=== PATIENT | male | born 1935 | race Two or more races ===

== ENCOUNTER 2017-10-19 15:40 | Inpatient (IN) | payer MEDICARE, OTHER ==
[~2017-10-19] VITALS: Ht 182.7 cm; Wt 96.2 kg
[2017-10-19] MEDS ORDERED: GABA-534 PO (16:03)
[2017-10-19] MEDS ORDERED: METO-356 PO (16:03)
[2017-10-19] MEDS ORDERED: ATOR20TA PO (16:03)
[2017-10-19] MEDS ORDERED: FOLI1TAB16 PO (16:03)
[2017-10-19] MEDS ORDERED: LEVO112T5 PO (16:03)
[2017-10-19] MEDS ORDERED: CLOT15CR5 TP (16:03)
[2017-10-19] MEDS ORDERED: LINA145C PO (16:03)
[2017-10-19] MEDS ORDERED: BISACODYL 10 MG SUPP.RECT RC PRN (20:00)
[2017-10-19 20:43] VITALS: BP 128/68
[2017-10-19] MEDS: CLOTRIMAZOLE/BETAMET DIPROP CREAM 15 GM TUBE TP SCH (21:02)
[2017-10-19] MEDS: ATORVASTATIN 20 MG TABLET PO SCH (21:02)
[2017-10-19] MEDS: GABAPENTIN 300 MG CAPSULE PO SCH (21:06)
[2017-10-19] MEDS: DOCUSATE SODIUM 100 MG CAPSULE PO SCH (21:28)
[2017-10-19] MEDS ORDERED: INSULIN REGULAR, HUMAN 300 UNIT/3 ML VIAL SQ PRN (21:45)
[2017-10-19] MEDS ORDERED: DEXTROSE 50% 50 ML DISP.SYRIN IV PRN (21:45)
[2017-10-20] MEDS: LEVOTHYROXINE SODIUM 112 MCG TABLET PO SCH (06:13)
[2017-10-20] MEDS: BLOOD SUGAR DIAGNOSTIC 1 EACH STRIP VI SCH ×4 (06:35→20:44)
[2017-10-20 08:15] LABS: BASOPHILS % (AUTO) 0.3 % (0.0-2.0); EOSINOPHILS # (AUTO) 0.2 K/uL (0.0-0.7); EOSINOPHILS % (AUTO) 1.6 % (0.0-7.0); HEMOGLOBIN 13.1 g/dL (12.5-16.3); LYMPHOCYTES # (AUTO) 1.3 K/uL (20.0-40.0); LYMPHOCYTES % (AUTO) 13.5 % (20.5-51.5); MEAN CORPUSCULAR HEMOGLOBIN 29.1 uug (23.8-33.4); MEAN CORPUSCULAR HGB CONC 34 g/dL (32.5-36.3); MEAN CORPUSCULAR VOLUME 86.8 fL (73.0-96.2); MONOCYTES # (AUTO) 0.6 K/uL (2.0-10.0); MONOCYTES % (AUTO) 6.5 % (0.0-11.0); NEUTROPHILS # (AUTO) 7.3 K/uL (1.8-8.9); NEUTROPHILS % (AUTO) 78.1 % (38.5-71.5); PLATELET COUNT (AUTO) 114 K/uL (152-348); RED BLOOD CELL COUNT(AUTO) 4.49 MIL/uL (4.06-5.63); WHITE BLOOD COUNT (AUTO) 9.4 K/uL (3.6-10.2)
[2017-10-20 08:22] VITALS: BP 119/61
[2017-10-20] MEDS: GABAPENTIN 300 MG CAPSULE PO SCH ×3 (08:34→17:56)
[2017-10-20] MEDS: FOLIC ACID 1 MG TABLET PO SCH (08:34)
[2017-10-20 08:35] LABS: THYROID STIMULATING HORMONE 2.524 mIU/mL (0.358-3.740)
[2017-10-20] MEDS: METOPROLOL SUCCINATE XL 25 MG TAB.SR.24H PO SCH (08:35)
[2017-10-20] MEDS: CLOTRIMAZOLE/BETAMET DIPROP CREAM 15 GM TUBE TP SCH ×2 (08:41→20:45)
[2017-10-20 09:00] LABS: ALANINE AMINOTRANSFERASE 23 U/L (16-63); ALKALINE PHOSPHATASE 95 U/L (50-136); ASPARTATE AMINOTRANSFERASE 24 U/L (15-37); BILIRUBIN,TOTAL 0.9 mg/dL (0.2-1.0); CARBON DIOXIDE 27 mmol/L (21-32); CHLORIDE 105 mmol/L (98-107); CHOLESTEROL 117 mg/dL (<200); CREATININE 0.7 mg/dL (0.6-1.3); GLUCOSE 110 mg/dL (74-106); HDL CHOLESTEROL 37 mg/dL (40-60); MAGNESIUM 1.9 mg/dL (1.8-2.4); PHOSPHOROUS 2.8 mg/dL (2.5-4.9); POTASSIUM 3.8 mmol/L (3.5-5.1); TOTAL PROTEIN, SERUM 6.9 g/dL (6.4-8.2); TRIGLYCERIDES 118 MG/DL (30-150); UREA NITROGEN, BLOOD 16 mg/dL (7-18)
[2017-10-20 09:06] LABS: IRON, SERUM 29 ug/dL (50-175)
[2017-10-20] MEDS: BOOST GLUCOSE CONTROL 237 ML LIQUID (VANILLA) PO SCH (17:00)
[2017-10-20] MEDS: ACETAMINOPHEN 325 MG TABLET PO PRN (17:56)
[2017-10-20] MEDS: MEGESTROL ACETATE 20 MG TABLET PO SCH (17:56)
[2017-10-20 19:50] VITALS: BP 130/69
[2017-10-20] MEDS: ATORVASTATIN 20 MG TABLET PO SCH (20:45)
[2017-10-20] MEDS: DOCUSATE SODIUM 100 MG CAPSULE PO SCH (20:45)
[2017-10-21] MEDS: LEVOTHYROXINE SODIUM 112 MCG TABLET PO SCH (06:13)
[2017-10-21] MEDS: BLOOD SUGAR DIAGNOSTIC 1 EACH STRIP VI SCH ×4 (06:32→20:45)
[2017-10-21 07:30] VITALS: BP 126/78
[2017-10-21] MEDS: BOOST GLUCOSE CONTROL 237 ML LIQUID (VANILLA) PO SCH ×2 (09:15→17:14)
[2017-10-21] MEDS: METOPROLOL SUCCINATE XL 25 MG TAB.SR.24H PO SCH (09:16)
[2017-10-21] MEDS: GABAPENTIN 300 MG CAPSULE PO SCH ×3 (09:16→17:14)
[2017-10-21] MEDS: FOLIC ACID 1 MG TABLET PO SCH (09:16)
[2017-10-21] MEDS: MEGESTROL ACETATE 20 MG TABLET PO SCH ×2 (09:17→17:14)
[2017-10-21] MEDS: CLOTRIMAZOLE/BETAMET DIPROP CREAM 15 GM TUBE TP SCH ×2 (09:23→20:33)
[2017-10-21 20:16] VITALS: BP 124/62
[2017-10-21] MEDS: ATORVASTATIN 20 MG TABLET PO SCH (20:33)
[2017-10-21] MEDS: DOCUSATE SODIUM 100 MG CAPSULE PO SCH (20:33)
[2017-10-22] MEDS: LEVOTHYROXINE SODIUM 112 MCG TABLET PO SCH (06:12)
[2017-10-22 08:31] VITALS: BP 128/64
[2017-10-22] MEDS: CHOLECALCIFEROL 1,000 UNIT TABLET PO SCH (10:08)
[2017-10-22] MEDS: FOLIC ACID 1 MG TABLET PO SCH (10:08)
[2017-10-22] MEDS: GABAPENTIN 300 MG CAPSULE PO SCH ×3 (10:08→17:27)
[2017-10-22] MEDS: METOPROLOL SUCCINATE XL 25 MG TAB.SR.24H PO SCH (10:09)
[2017-10-22] MEDS: MEGESTROL ACETATE 20 MG TABLET PO SCH ×2 (10:10→17:27)
[2017-10-22] MEDS: CLOTRIMAZOLE/BETAMET DIPROP CREAM 15 GM TUBE TP SCH ×2 (10:15→21:04)
[2017-10-22] MEDS: BOOST GLUCOSE CONTROL 237 ML LIQUID (VANILLA) PO SCH ×2 (10:16→17:43)
[2017-10-22 20:46] VITALS: BP 119/65
[2017-10-22] MEDS: ATORVASTATIN 20 MG TABLET PO SCH (21:04)
[2017-10-22] MEDS: DOCUSATE SODIUM 100 MG CAPSULE PO SCH (21:05)
[2017-10-23] MEDS: LEVOTHYROXINE SODIUM 112 MCG TABLET PO SCH (06:16)
[2017-10-23 07:05] VITALS: BP 139/72
[2017-10-23 08:00] VITALS: BP 129/81
[2017-10-23] MEDS: CHOLECALCIFEROL 1,000 UNIT TABLET PO SCH (08:39)
[2017-10-23] MEDS: FOLIC ACID 1 MG TABLET PO SCH (08:39)
[2017-10-23] MEDS: GABAPENTIN 300 MG CAPSULE PO SCH ×3 (08:39→17:23)
[2017-10-23] MEDS: METOPROLOL SUCCINATE XL 25 MG TAB.SR.24H PO SCH (08:40)
[2017-10-23] MEDS: MEGESTROL ACETATE 20 MG TABLET PO SCH ×2 (08:40→17:23)
[2017-10-23] MEDS: CLOTRIMAZOLE/BETAMET DIPROP CREAM 15 GM TUBE TP SCH ×2 (08:42→20:06)
[2017-10-23] MEDS: BOOST GLUCOSE CONTROL 237 ML LIQUID (VANILLA) PO SCH ×2 (08:44→17:24)
[2017-10-23] MEDS: DOCUSATE SODIUM 100 MG CAPSULE PO SCH (20:16)
[2017-10-23] MEDS: ATORVASTATIN 20 MG TABLET PO SCH (20:16)
[2017-10-24] MEDS: LEVOTHYROXINE SODIUM 112 MCG TABLET PO SCH (06:24)
[2017-10-24 07:05] VITALS: BP 151/68
[2017-10-24] MEDS: CHOLECALCIFEROL 1,000 UNIT TABLET PO SCH (09:14)
[2017-10-24] MEDS: MEGESTROL ACETATE 20 MG TABLET PO SCH ×2 (09:14→17:35)
[2017-10-24] MEDS: METOPROLOL SUCCINATE XL 25 MG TAB.SR.24H PO SCH (09:14)
[2017-10-24] MEDS: FOLIC ACID 1 MG TABLET PO SCH (09:15)
[2017-10-24] MEDS: BOOST GLUCOSE CONTROL 237 ML LIQUID (VANILLA) PO SCH ×2 (09:15→17:35)
[2017-10-24] MEDS: CLOTRIMAZOLE/BETAMET DIPROP CREAM 15 GM TUBE TP SCH ×2 (09:15→20:28)
[2017-10-24] MEDS: GABAPENTIN 300 MG CAPSULE PO SCH ×3 (09:15→17:35)
[2017-10-24] MEDS: ACETAMINOPHEN 325 MG TABLET PO PRN (14:10)
[2017-10-24 20:15] VITALS: BP 135/57
[2017-10-24] MEDS: DOCUSATE SODIUM 100 MG CAPSULE PO SCH (20:28)
[2017-10-24] MEDS: ATORVASTATIN 20 MG TABLET PO SCH (20:29)
[2017-10-24] MEDS ORDERED: CARBOXYMETHYLCELLULOSE SODIUM DROPERETTE EACHEYE PRN (21:45)
[2017-10-25] MEDS: LEVOTHYROXINE SODIUM 112 MCG TABLET PO SCH (06:10)
[2017-10-25 08:25] VITALS: BP 127/69
[2017-10-25] MEDS: GABAPENTIN 300 MG CAPSULE PO SCH ×3 (10:20→17:29)
[2017-10-25] MEDS: METOPROLOL SUCCINATE XL 25 MG TAB.SR.24H PO SCH (10:20)
[2017-10-25] MEDS: CHOLECALCIFEROL 1,000 UNIT TABLET PO SCH (10:20)
[2017-10-25] MEDS: MEGESTROL ACETATE 20 MG TABLET PO SCH ×2 (10:21→17:29)
[2017-10-25] MEDS: FOLIC ACID 1 MG TABLET PO SCH (10:21)
[2017-10-25] MEDS: CLOTRIMAZOLE/BETAMET DIPROP CREAM 15 GM TUBE TP SCH ×2 (10:22→20:44)
[2017-10-25] MEDS: BOOST GLUCOSE CONTROL 237 ML LIQUID (VANILLA) PO SCH ×2 (10:25→17:30)
[2017-10-25 19:52] VITALS: BP 136/66
[2017-10-25] MEDS: ATORVASTATIN 20 MG TABLET PO SCH (20:43)
[2017-10-25] MEDS: DOCUSATE SODIUM 100 MG CAPSULE PO SCH (20:43)
[2017-10-26] MEDS: LEVOTHYROXINE SODIUM 112 MCG TABLET PO SCH (06:22)
[2017-10-26] MEDS: BOOST GLUCOSE CONTROL 237 ML LIQUID (VANILLA) PO SCH ×2 (08:00→17:24)
[2017-10-26] MEDS: FOLIC ACID 1 MG TABLET PO SCH (09:39)
[2017-10-26] MEDS: CLOTRIMAZOLE/BETAMET DIPROP CREAM 15 GM TUBE TP SCH ×2 (09:39→20:26)
[2017-10-26] MEDS: CHOLECALCIFEROL 1,000 UNIT TABLET PO SCH (09:39)
[2017-10-26] MEDS: MEGESTROL ACETATE 20 MG TABLET PO SCH ×2 (09:40→16:33)
[2017-10-26] MEDS: GABAPENTIN 300 MG CAPSULE PO SCH ×3 (09:41→16:33)
[2017-10-26] MEDS: METOPROLOL SUCCINATE XL 25 MG TAB.SR.24H PO SCH (09:43)
[2017-10-26 11:33] VITALS: BP 136/69
[2017-10-26 20:13] VITALS: BP 130/70
[2017-10-26] MEDS: ATORVASTATIN 20 MG TABLET PO SCH (20:23)
[2017-10-26] MEDS: DOCUSATE SODIUM 100 MG CAPSULE PO SCH (20:23)
[2017-10-27] MEDS: LEVOTHYROXINE SODIUM 112 MCG TABLET PO SCH (06:20)
[2017-10-27] MEDS: BOOST GLUCOSE CONTROL 237 ML LIQUID (VANILLA) PO SCH ×2 (08:00→18:01)
[2017-10-27 08:24] VITALS: BP 112/64
[2017-10-27] MEDS: CLOTRIMAZOLE/BETAMET DIPROP CREAM 15 GM TUBE TP SCH ×2 (08:59→20:55)
[2017-10-27] MEDS: MEGESTROL ACETATE 20 MG TABLET PO SCH ×2 (09:23→18:01)
[2017-10-27] MEDS: GABAPENTIN 300 MG CAPSULE PO SCH ×3 (09:24→18:02)
[2017-10-27] MEDS: FERROUS GLUCONATE 324 MG TABLET PO SCH (09:24)
[2017-10-27] MEDS: CHOLECALCIFEROL 1,000 UNIT TABLET PO SCH (09:24)
[2017-10-27] MEDS: METOPROLOL SUCCINATE XL 25 MG TAB.SR.24H PO SCH (09:27)
[2017-10-27] MEDS: FOLIC ACID 1 MG TABLET PO SCH (09:27)
[2017-10-27 20:27] VITALS: BP 129/74
[2017-10-27] MEDS: DOCUSATE SODIUM 100 MG CAPSULE PO SCH (20:55)
[2017-10-27] MEDS: ATORVASTATIN 20 MG TABLET PO SCH (20:55)
[2017-10-28] MEDS: LEVOTHYROXINE SODIUM 112 MCG TABLET PO SCH (06:10)
[2017-10-28 08:52] VITALS: BP 129/73
[2017-10-28] MEDS: CLOTRIMAZOLE/BETAMET DIPROP CREAM 15 GM TUBE TP SCH ×2 (09:00→20:15)
[2017-10-28] MEDS: BOOST GLUCOSE CONTROL 237 ML LIQUID (VANILLA) PO SCH ×2 (09:00→17:17)
[2017-10-28] MEDS: SENNOSIDES 1 TABLET PO SCH (09:00)
[2017-10-28] MEDS: CHOLECALCIFEROL 1,000 UNIT TABLET PO SCH (09:07)
[2017-10-28] MEDS: FOLIC ACID 1 MG TABLET PO SCH (09:07)
[2017-10-28] MEDS: GABAPENTIN 300 MG CAPSULE PO SCH ×3 (09:07→17:13)
[2017-10-28] MEDS: FERROUS GLUCONATE 324 MG TABLET PO SCH (09:07)
[2017-10-28] MEDS: MEGESTROL ACETATE 20 MG TABLET PO SCH ×2 (09:08→17:13)
[2017-10-28] MEDS: METOPROLOL SUCCINATE XL 25 MG TAB.SR.24H PO SCH (09:08)
[2017-10-28 09:23] LABS: *OCCULT BLOOD STOOL NEGATIVE (NEGATIVE)
[2017-10-28] MEDS: ATORVASTATIN 20 MG TABLET PO SCH (20:15)
[2017-10-28] MEDS: DOCUSATE SODIUM 100 MG CAPSULE PO SCH (20:16)
[2017-10-28 20:52] VITALS: BP 125/78
[2017-10-29] MEDS: LEVOTHYROXINE SODIUM 112 MCG TABLET PO SCH (06:18)
[2017-10-29 08:00] VITALS: BP 125/61
[2017-10-29] MEDS: BOOST GLUCOSE CONTROL 237 ML LIQUID (VANILLA) PO SCH ×2 (08:16→17:42)
[2017-10-29] MEDS: GABAPENTIN 300 MG CAPSULE PO SCH ×3 (08:17→16:28)
[2017-10-29] MEDS: MEGESTROL ACETATE 20 MG TABLET PO SCH ×2 (08:17→16:28)
[2017-10-29] MEDS: CLOTRIMAZOLE/BETAMET DIPROP CREAM 15 GM TUBE TP SCH ×2 (08:17→21:00)
[2017-10-29] MEDS: CHOLECALCIFEROL 1,000 UNIT TABLET PO SCH (08:17)
[2017-10-29] MEDS: FERROUS GLUCONATE 324 MG TABLET PO SCH (08:17)
[2017-10-29] MEDS: FOLIC ACID 1 MG TABLET PO SCH (08:17)
[2017-10-29] MEDS: SENNOSIDES 1 TABLET PO SCH (08:19)
[2017-10-29] MEDS: METOPROLOL SUCCINATE XL 25 MG TAB.SR.24H PO SCH (08:19)
[2017-10-29 20:15] VITALS: BP 137/64
[2017-10-29] MEDS: ATORVASTATIN 20 MG TABLET PO SCH (20:59)
[2017-10-29] MEDS: DOCUSATE SODIUM 100 MG CAPSULE PO SCH (21:00)
[2017-10-30] MEDS: LEVOTHYROXINE SODIUM 112 MCG TABLET PO SCH (06:05)
[2017-10-30] MEDS: GABAPENTIN 100 MG CAPSULE PO SCH ×3 (08:03→17:22)
[2017-10-30] MEDS: FERROUS GLUCONATE 324 MG TABLET PO SCH (08:03)
[2017-10-30] MEDS: MEGESTROL ACETATE 20 MG TABLET PO SCH ×2 (08:04→17:22)
[2017-10-30] MEDS: SENNOSIDES 1 TABLET PO SCH (08:04)
[2017-10-30] MEDS: CHOLECALCIFEROL 1,000 UNIT TABLET PO SCH (08:04)
[2017-10-30] MEDS: FOLIC ACID 1 MG TABLET PO SCH (08:04)
[2017-10-30] MEDS: BOOST GLUCOSE CONTROL 237 ML LIQUID (VANILLA) PO SCH ×2 (08:05→17:22)
[2017-10-30] MEDS: METOPROLOL SUCCINATE XL 25 MG TAB.SR.24H PO SCH (08:05)
[2017-10-30] MEDS: CLOTRIMAZOLE/BETAMET DIPROP CREAM 15 GM TUBE TP SCH ×2 (08:05→21:07)
[2017-10-30 08:54] VITALS: BP 113/65
[2017-10-30 20:33] VITALS: BP 119/50
[2017-10-30] MEDS: DOCUSATE SODIUM 100 MG CAPSULE PO SCH (21:07)
[2017-10-30] MEDS: ATORVASTATIN 20 MG TABLET PO SCH (21:08)
[2017-10-31] MEDS: LEVOTHYROXINE SODIUM 112 MCG TABLET PO SCH (06:03)
[2017-10-31 08:13] VITALS: BP 133/61
[2017-10-31] MEDS: BOOST GLUCOSE CONTROL 237 ML LIQUID (VANILLA) PO SCH ×2 (08:15→17:09)
[2017-10-31] MEDS: CLOTRIMAZOLE/BETAMET DIPROP CREAM 15 GM TUBE TP SCH ×2 (08:16→20:44)
[2017-10-31] MEDS: MEGESTROL ACETATE 20 MG TABLET PO SCH ×2 (09:22→17:09)
[2017-10-31] MEDS: SENNOSIDES 1 TABLET PO SCH (09:22)
[2017-10-31] MEDS: FOLIC ACID 1 MG TABLET PO SCH (09:22)
[2017-10-31] MEDS: GABAPENTIN 100 MG CAPSULE PO SCH ×3 (09:22→17:15)
[2017-10-31] MEDS: FERROUS GLUCONATE 324 MG TABLET PO SCH (09:22)
[2017-10-31] MEDS: CHOLECALCIFEROL 1,000 UNIT TABLET PO SCH (09:22)
[2017-10-31] MEDS: METOPROLOL SUCCINATE XL 25 MG TAB.SR.24H PO SCH (09:23)
[2017-10-31 20:20] VITALS: BP 127/64
[2017-10-31] MEDS: ATORVASTATIN 20 MG TABLET PO SCH (20:42)
[2017-10-31] MEDS: DOCUSATE SODIUM 100 MG CAPSULE PO SCH (20:43)
[2017-11-01] MEDS: LEVOTHYROXINE SODIUM 112 MCG TABLET PO SCH (06:31)
[2017-11-01] MEDS: CLOTRIMAZOLE/BETAMET DIPROP CREAM 15 GM TUBE TP SCH ×2 (08:17→21:05)
[2017-11-01] MEDS: BOOST GLUCOSE CONTROL 237 ML LIQUID (VANILLA) PO SCH ×2 (08:24→17:28)
[2017-11-01] MEDS: FOLIC ACID 1 MG TABLET PO SCH (09:14)
[2017-11-01] MEDS: GABAPENTIN 100 MG CAPSULE PO SCH ×3 (09:15→17:28)
[2017-11-01] MEDS: MEGESTROL ACETATE 20 MG TABLET PO SCH ×2 (09:15→17:28)
[2017-11-01] MEDS: SENNOSIDES 1 TABLET PO SCH (09:15)
[2017-11-01] MEDS: FERROUS GLUCONATE 324 MG TABLET PO SCH (09:15)
[2017-11-01] MEDS: METOPROLOL SUCCINATE XL 25 MG TAB.SR.24H PO SCH (09:15)
[2017-11-01] MEDS: CHOLECALCIFEROL 1,000 UNIT TABLET PO SCH (09:16)
[2017-11-01 11:38] VITALS: BP 140/52
[2017-11-01 20:06] VITALS: BP 132/74
[2017-11-01] MEDS: DOCUSATE SODIUM 100 MG CAPSULE PO SCH (21:04)
[2017-11-01] MEDS: ATORVASTATIN 20 MG TABLET PO SCH (21:04)
[2017-11-02] MEDS: LEVOTHYROXINE SODIUM 112 MCG TABLET PO SCH (06:19)
[2017-11-02] MEDS: BOOST GLUCOSE CONTROL 237 ML LIQUID (VANILLA) PO SCH ×2 (08:00→16:50)
[2017-11-02] MEDS: CLOTRIMAZOLE/BETAMET DIPROP CREAM 15 GM TUBE TP SCH ×2 (08:00→20:18)
[2017-11-02 08:29] VITALS: BP 126/75
[2017-11-02] MEDS: FOLIC ACID 1 MG TABLET PO SCH (09:10)
[2017-11-02] MEDS: FERROUS GLUCONATE 324 MG TABLET PO SCH (09:11)
[2017-11-02] MEDS: MEGESTROL ACETATE 20 MG TABLET PO SCH ×2 (09:11→16:50)
[2017-11-02] MEDS: SENNOSIDES 1 TABLET PO SCH (09:11)
[2017-11-02] MEDS: METOPROLOL SUCCINATE XL 25 MG TAB.SR.24H PO SCH (09:11)
[2017-11-02] MEDS: CHOLECALCIFEROL 1,000 UNIT TABLET PO SCH (09:11)
[2017-11-02] MEDS: GABAPENTIN 100 MG CAPSULE PO SCH ×3 (09:11→16:50)
[2017-11-02] MEDS: ATORVASTATIN 20 MG TABLET PO SCH (20:18)
[2017-11-02] MEDS: DOCUSATE SODIUM 100 MG CAPSULE PO SCH (20:18)
[2017-11-02 20:27] VITALS: BP 130/65
[2017-11-03] MEDS: LEVOTHYROXINE SODIUM 112 MCG TABLET PO SCH (06:41)
[2017-11-03 07:30] VITALS: BP 137/77
[2017-11-03] MEDS: METOPROLOL SUCCINATE XL 25 MG TAB.SR.24H PO SCH (08:37)
[2017-11-03] MEDS: FOLIC ACID 1 MG TABLET PO SCH (08:37)
[2017-11-03] MEDS: FERROUS GLUCONATE 324 MG TABLET PO SCH (08:37)
[2017-11-03] MEDS: CHOLECALCIFEROL 1,000 UNIT TABLET PO SCH (08:38)
[2017-11-03] MEDS: MEGESTROL ACETATE 20 MG TABLET PO SCH ×2 (08:38→17:40)
[2017-11-03] MEDS: GABAPENTIN 100 MG CAPSULE PO SCH ×3 (08:38→17:40)
[2017-11-03] MEDS: SENNOSIDES 1 TABLET PO SCH (08:38)
[2017-11-03] MEDS: CLOTRIMAZOLE/BETAMET DIPROP CREAM 15 GM TUBE TP SCH ×2 (08:39→20:55)
[2017-11-03] MEDS: BOOST GLUCOSE CONTROL 237 ML LIQUID (VANILLA) PO SCH ×2 (08:39→17:42)
[2017-11-03 09:37] VITALS: BP 137/58
[2017-11-03 21:00] VITALS: BP 119/60
[2017-11-03] MEDS: ATORVASTATIN 20 MG TABLET PO SCH (21:01)
[2017-11-03] MEDS: DOCUSATE SODIUM 100 MG CAPSULE PO SCH (21:02)
[2017-11-04] MEDS: LEVOTHYROXINE SODIUM 112 MCG TABLET PO SCH (06:22)
[2017-11-04] MEDS: CLOTRIMAZOLE/BETAMET DIPROP CREAM 15 GM TUBE TP SCH ×2 (08:42→20:44)
[2017-11-04] MEDS: BOOST GLUCOSE CONTROL 237 ML LIQUID (VANILLA) PO SCH ×2 (08:42→17:09)
[2017-11-04 08:58] VITALS: BP 128/80
[2017-11-04] MEDS: MEGESTROL ACETATE 20 MG TABLET PO SCH ×2 (10:19→17:08)
[2017-11-04] MEDS: GABAPENTIN 100 MG CAPSULE PO SCH ×3 (10:20→17:08)
[2017-11-04] MEDS: FERROUS GLUCONATE 324 MG TABLET PO SCH (10:20)
[2017-11-04] MEDS: SENNOSIDES 1 TABLET PO SCH (10:20)
[2017-11-04] MEDS: FOLIC ACID 1 MG TABLET PO SCH (10:21)
[2017-11-04] MEDS: METOPROLOL SUCCINATE XL 25 MG TAB.SR.24H PO SCH (10:21)
[2017-11-04] MEDS: CHOLECALCIFEROL 1,000 UNIT TABLET PO SCH (10:21)
[2017-11-04 20:35] VITALS: BP 127/63
[2017-11-04] MEDS: DOCUSATE SODIUM 100 MG CAPSULE PO SCH (20:43)
[2017-11-04] MEDS: ATORVASTATIN 20 MG TABLET PO SCH (20:43)
[2017-11-05 07:00] VITALS: BP 113/75
[2017-11-05] MEDS: LEVOTHYROXINE SODIUM 112 MCG TABLET PO SCH (07:20)
[2017-11-05] MEDS: CLOTRIMAZOLE/BETAMET DIPROP CREAM 15 GM TUBE TP SCH ×2 (08:00→20:33)
[2017-11-05] MEDS: BOOST GLUCOSE CONTROL 237 ML LIQUID (VANILLA) PO SCH ×2 (08:00→17:34)
[2017-11-05] MEDS: GABAPENTIN 100 MG CAPSULE PO SCH ×3 (09:10→17:34)
[2017-11-05] MEDS: SENNOSIDES 1 TABLET PO SCH (09:10)
[2017-11-05] MEDS: FOLIC ACID 1 MG TABLET PO SCH (09:10)
[2017-11-05] MEDS: CHOLECALCIFEROL 1,000 UNIT TABLET PO SCH (09:10)
[2017-11-05] MEDS: METOPROLOL SUCCINATE XL 25 MG TAB.SR.24H PO SCH (09:11)
[2017-11-05] MEDS: FERROUS GLUCONATE 324 MG TABLET PO SCH (09:11)
[2017-11-05] MEDS: MEGESTROL ACETATE 20 MG TABLET PO SCH ×2 (09:12→17:34)
[2017-11-05 20:15] VITALS: BP 118/56
[2017-11-05] MEDS: DOCUSATE SODIUM 100 MG CAPSULE PO SCH (20:32)
[2017-11-05] MEDS: ATORVASTATIN 20 MG TABLET PO SCH (20:32)
[2017-11-06] MEDS: LEVOTHYROXINE SODIUM 112 MCG TABLET PO SCH (06:18)
[2017-11-06] MEDS: CLOTRIMAZOLE/BETAMET DIPROP CREAM 15 GM TUBE TP SCH (08:51)
[2017-11-06] MEDS: BOOST GLUCOSE CONTROL 237 ML LIQUID (VANILLA) PO SCH (08:51)
[2017-11-06] MEDS: CHOLECALCIFEROL 1,000 UNIT TABLET PO SCH (08:52)
[2017-11-06] MEDS: FERROUS GLUCONATE 324 MG TABLET PO SCH (08:52)
[2017-11-06] MEDS: GABAPENTIN 100 MG CAPSULE PO SCH (08:52)
[2017-11-06] MEDS: FOLIC ACID 1 MG TABLET PO SCH (08:52)
[2017-11-06] MEDS: METOPROLOL SUCCINATE XL 25 MG TAB.SR.24H PO SCH (08:53)
[2017-11-06] MEDS: MEGESTROL ACETATE 20 MG TABLET PO SCH (08:53)
[2017-11-06] MEDS: SENNOSIDES 1 TABLET PO SCH (08:53)
[2017-11-06 09:13] VITALS: BP 148/69
== END 2017-11-06 13:10 | disposition home health service (06) | DRG 949 ==
PROVIDERS: ADMIT Physical Medicine & Rehabilitation Pain Medicine; ATTEND Physical Medicine & Rehabilitation Pain Medicine
DX: S06.5X9D Traumatic subdural hemorrhage with loss of consciousness of unspecified duration, subsequent encounter (principal); G82.50 Quadriplegia, unspecified; E43 Unspecified severe protein-calorie malnutrition; D68.59 Other primary thrombophilia; E11.42 Type 2 diabetes mellitus with diabetic polyneuropathy; G32.81 Cerebellar ataxia in diseases classified elsewhere; I11.0 Hypertensive heart disease with heart failure; I50.9 Heart failure, unspecified; J98.11 Atelectasis; S14.104S Unspecified injury at C4 level of cervical spinal cord, sequela; S14.105S Unspecified injury at C5 level of cervical spinal cord, sequela; S06.6X9D Traumatic subarachnoid hemorrhage with loss of consciousness of unspecified duration, subsequent encounter; E89.0 Postprocedural hypothyroidism; W07.XXXD Fall from chair, subsequent encounter; E55.9 Vitamin D deficiency, unspecified; E66.9 Obesity, unspecified; Z68.28 Body mass index [BMI] 28.0-28.9, adult; E78.5 Hyperlipidemia, unspecified; S01.01XD Laceration without foreign body of scalp, subsequent encounter; M16.0 Bilateral primary osteoarthritis of hip; M77.9 Enthesopathy, unspecified; W11.XXXS Fall on and from ladder, sequela; K56.41 Fecal impaction; Z90.49 Acquired absence of other specified parts of digestive tract; R53.1 Weakness; Z87.891 Personal history of nicotine dependence
CPT/HCPCS: 36415; 70030-TC; 71045; 74018; 82306; 83550; 83735; 84100; 84443; 85025; 92507; 92523; 97110; 97112; 97116; 97530; 97535; A9150; J1815

== ENCOUNTER 2021-01-12 20:15 | Inpatient (IN) | payer MEDICARE, OTHER ==
[~2021-01-12] VITALS: Ht 175.3 cm; Wt 95.4 kg
[~2021-01-12 20:15] MED LIST: ATOR20TA PO; CLOT15CR5 TP; FOLI1TAB94 PO; GABA-534 PO; LEVO112T5 PO; LINA145C PO; METO-356 PO
--- NOTE | 2021-01-12 20:18 | NUR ---
Patient brought in by rescue ambulance for symptoms related to his second covid vaccine received earlier today. Patient is rather altered only able to maintain conversation a very brief time before he falls asleep. Patient is able to tell me his name but that was about all before he fell asleep. Patient arrived on 4L O2 via NC, however to obtain his baseline, i measured his SPO2 at room air which he achieved 91%. Patient was placed back on 4L oxygen via NC. 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 BP is stable ar 135/57.
--- NOTE | 2021-01-12 20:25 | NUR ---
Dr. Liao in room to evaluate the patient.
[2021-01-12] MEDS ORDERED: IV NORMAL SALINE 500 ML BAG IV ONE (20:30)
--- NOTE | 2021-01-12 20:31 | NUR ---
Note undone in EDM - 01/12/21 at 2036 by SHELLEY Patient brought in by rescue ambulance for symptoms related to his second covid vaccine received earlier today. Patient is rather altered only able to maintain conversation a very brief time before he falls asleep. Patient is able to tell me his name but that was about all before he fell asleep. Patient arrived on 4L O2 via NC, however to obtain his baseline, i measured his SPO2 at room air which he achieved 91%. Patient was placed back on 4L oxygen via NC. 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 BP is stable ar 135/57.
[2021-01-12 21:03] LABS: HEMATOCRIT 36.5 % (36.7-47.1); HEMOGLOBIN 12.1 g/dL (12.5-16.3); LYMPHOCYTES # (AUTO) 0.7 K/uL (20.0-40.0); MONOCYTES # (AUTO) 0.5 K/uL (2.0-10.0); PLATELET COUNT (AUTO) 97 K/uL (152-348)
[2021-01-12 21:06] LABS: ETHANOL < 3 MG/DL (0-0)
[2021-01-12 21:16] LABS: BASOPHILS % (AUTO) 0.2 % (0.0-2.0); EOSINOPHILS % (AUTO) 0.2 % (0.0-7.0); LYMPHOCYTES % (AUTO) 10.8 % (20.5-51.5); MEAN CORPUSCULAR HEMOGLOBIN 28.5 uug (23.8-33.4); MEAN CORPUSCULAR HGB CONC 33 g/dL (32.5-36.3); MEAN CORPUSCULAR VOLUME 85.9 fL (73.0-96.2); MONOCYTES % (AUTO) 7.7 % (0.0-11.0); NEUTROPHILS # (AUTO) 5.5 K/uL (1.8-8.9); NEUTROPHILS % (AUTO) 81.1 % (38.5-71.5); RED BLOOD CELL COUNT(AUTO) 4.25 MIL/uL (4.06-5.63); WHITE BLOOD COUNT (AUTO) 6.8 K/uL (3.6-10.2)
[2021-01-12 21:17] LABS: THYROID STIMULATING HORMONE 0.847 mIU/mL (0.358-3.740)
[2021-01-12 21:19] LABS: ALANINE AMINOTRANSFERASE 47 U/L (16-63); ALKALINE PHOSPHATASE 87 U/L (50-136); ASPARTATE AMINOTRANSFERASE 52 U/L (15-37); BILIRUBIN,DIRECT 0.3 mg/dL (0.0-0.2); BILIRUBIN,TOTAL 1.2 mg/dL (0.2-1.0); CARBON DIOXIDE 35 mmol/L (21-32); CHLORIDE 99 mmol/L (98-107); GLUCOSE 127 mg/dL (74-106); TOTAL PROTEIN, SERUM 6.4 g/dL (6.4-8.2); UREA NITROGEN, BLOOD 12 mg/dL (7-18)
[2021-01-12 21:21] LABS: ACETAMINOPHEN < 2.0 ug/mL (10-30)
[2021-01-12 21:24] LABS: POTASSIUM 2.8 mmol/L (3.5-5.1)
[2021-01-12] MEDS ORDERED: POTASSIUM CHLORIDE 20 MEQ TAB.PRT.SR PO ONE (21:30)
[2021-01-12] MEDS ORDERED: FURO-151 PO (21:32)
[2021-01-12] MEDS ORDERED: ASPI81TA31 PO (21:32)
[2021-01-12] MEDS ORDERED: POTASSIUM CHLORIDE 20 MEQ TAB.PRT.SR ONE (21:36)
[2021-01-12] MEDS ORDERED: FUROSEMIDE 40 MG/4 ML VIAL IV ONE (22:15)
[2021-01-12 22:23] LABS: BAND % (MANUAL) 3 % (0-10); LYMPHOCYTES % (MANUAL) 20 % (20-40); MONOCYTES % (MANUAL) 2 % (2-10); NEUTROPHILS % (MANUAL) 75 % (42-75)
[2021-01-12] MEDS ORDERED: FUROSEMIDE 40 MG/4 ML VIAL ONE (23:43)
--- NOTE | 2021-01-13 00:05 | NUR ---
Patient to be admitted telemetry status room 308. Report given to receiving ANDREW Ortega.
[2021-01-13 00:10] VITALS: BP 135/49
[2021-01-13] MEDS ORDERED: ONDANSETRON 4 MG/2 ML VIAL IV PRN (00:45)
[2021-01-13] MEDS ORDERED: TEMAZEPAM 7.5 MG CAPSULE PO PRN (00:45)
[2021-01-13] MEDS ORDERED: ACETAMINOPHEN 325 MG TABLET PO PRN (00:45)
[2021-01-13 04:35] VITALS: BP 169/61
[2021-01-13] MEDS: PANTOPRAZOLE SODIUM 40 MG TABLET.DR PO SCH (06:20)
--- NOTE | 2021-01-13 06:45 | NUR ---
Pt admitted at 1248H. Denies pain or SOB. On 4L NC tolerating well. Assessment complete and all belongings accounted for. IV site patent. Tolerated all medications given. SR and A-Pacing on monitor. Bed is locked and in lowest position, no other issues or concerns. Will endorse to day shift.
--- NOTE | 2021-01-13 07:00 | NUR ---
received pt in bed sleeping call light with in reach vs are stable .no c/o pain noted
[2021-01-13 07:09] LABS: BASOPHILS % (AUTO) 0.3 % (0.0-2.0); EOSINOPHILS % (AUTO) 0.4 % (0.0-7.0); HEMATOCRIT 39.7 % (36.7-47.1); HEMOGLOBIN 13.2 g/dL (12.5-16.3); LYMPHOCYTES # (AUTO) 0.7 K/uL (20.0-40.0); LYMPHOCYTES % (AUTO) 11.8 % (20.5-51.5); MEAN CORPUSCULAR HEMOGLOBIN 29.2 uug (23.8-33.4); MEAN CORPUSCULAR HGB CONC 33 g/dL (32.5-36.3); MEAN CORPUSCULAR VOLUME 87.8 fL (73.0-96.2); MONOCYTES # (AUTO) 0.4 K/uL (2.0-10.0); MONOCYTES % (AUTO) 6.8 % (0.0-11.0); NEUTROPHILS # (AUTO) 4.8 K/uL (1.8-8.9); NEUTROPHILS % (AUTO) 80.7 % (38.5-71.5); PLATELET COUNT (AUTO) 97 K/uL (152-348); RED BLOOD CELL COUNT(AUTO) 4.52 MIL/uL (4.06-5.63)
[2021-01-13 07:31] LABS: THYROID STIMULATING HORMONE 0.794 mIU/mL (0.358-3.740)
[2021-01-13 07:35] LABS: BILIRUBIN,TOTAL 1.2 mg/dL (0.2-1.0); CREATININE 1.1 mg/dL (0.6-1.3); PHOSPHOROUS 3.2 mg/dL (2.5-4.9); POTASSIUM 3.5 mmol/L (3.5-5.1)
[2021-01-13 08:00] VITALS: BP 131/59
[2021-01-13] MEDS ORDERED: FUROSEMIDE 20 MG/2 ML VIAL IV SCH (09:00)
[2021-01-13] MEDS ORDERED: POTASSIUM CHLORIDE 20 MEQ POWDER PACKET PO ONE (12:00)
[2021-01-13 12:31] VITALS: BP 114/52
[2021-01-13] MEDS: FOLIC ACID 1 MG TABLET PO SCH (13:11)
[2021-01-13] MEDS: ASPIRIN 81 MG TAB.CHEW PO SCH (13:11)
[2021-01-13] MEDS: METOPROLOL SUCCINATE XL 25 MG TAB.SR.24H PO SCH (13:11)
[2021-01-13 14:45] LABS: BAND % (MANUAL) 2 % (0-10); LYMPHOCYTES % (MANUAL) 14 % (20-40); MONOCYTES % (MANUAL) 7 % (2-10); NEUTROPHILS % (MANUAL) 77 % (42-75)
[2021-01-13 15:47] LABS: *BILIRUBIN,URIN NEGATIVE (NEGATIVE); *BLOOD, URINE 2+ (NEGATIVE); *COLOR,URINE YELLOW (YELLOW); *KETONES,URINE NEGATIVE (NEGATIVE); *UROBILINOGEN,URINE 0.2 E.U./dl (NORMAL); LEUKOCYTE ESTERASE ,URINE NEGATIVE (NEGATIVE); NITRITE, URINE NEGATIVE (NEGATIVE); UGLUCOSE NEGATIVE (NEGATIVE)
[2021-01-13 15:54] LABS: *CLARITY,URINE HAZY (CLEAR); BACTERIA,URINE FEW /HPF (NONE SEEN); RBC,URINE 20-50 /HPF (0-3)
[2021-01-13 15:55] LABS: SQUAMOUS EPITHELIAL CELL,UR FEW /HPF (NONE SEEN)
[2021-01-13 15:59] LABS: *AMPHETAMINE, URINE NEGATIVE (NEGATIVE); *CANNABINOID, URINE NEGATIVE (NEGATIVE); *COCCAINE, URINE NEGATIVE (NEGATIVE); *OPIATE, URINE NEGATIVE (NEGATIVE); *PHENCYCLIDINE SCREEN,URINE NEGATIVE (NEGATIVE)
[2021-01-13 16:13] VITALS: BP 128/50
[2021-01-13 20:00] VITALS: BP 120/51
[2021-01-13] MEDS ORDERED: ATORVASTATIN 20 MG TABLET PO SCH (21:00)
[2021-01-13] MEDS ORDERED: ENOXAPARIN SODIUM 40 MG/0.4 ML DISP.SYRIN SQ SCH (21:00)
[2021-01-14] VITALS: BP 124/57
[2021-01-14 04:00] VITALS: BP 104/45
--- NOTE | 2021-01-14 05:40 | NUR ---
Pt slept throughout the night. Denies pain or SOB. Titrated to 2L NC, tolerating well sating at 94%. SR and A-Pacing on monitor. No acute distress noted. Bed is locked and in lowest position, call light within reach. No other issues or concerns at this time, will endorse to day shift.
[2021-01-14] MEDS: PANTOPRAZOLE SODIUM 40 MG TABLET.DR PO SCH (06:24)
[2021-01-14] MEDS ORDERED: LEVOTHYROXINE SODIUM 112 MCG TABLET PO SCH (07:00)
[2021-01-14] MEDS: ASPIRIN 81 MG TAB.CHEW PO SCH (08:39)
[2021-01-14] MEDS: FOLIC ACID 1 MG TABLET PO SCH (08:39)
[2021-01-14] MEDS: METOPROLOL SUCCINATE XL 25 MG TAB.SR.24H PO SCH (08:39)
[2021-01-14] MEDS ORDERED: FUROSEMIDE 40 MG TABLET PO SCH (09:00)
[2021-01-14] MEDS ORDERED: POTASSIUM CHLORIDE 10 MEQ TAB.PRT.SR PO SCH (09:00)
--- NOTE | 2021-01-14 10:00 | NUR ---
Patient noted to have moisture associate skin breakdown on sacrum. Patient is in continent. Notified Yue and loli ordered. WOund consult requested, air mattress ordered, and pictures taken.
[2021-01-14] MEDS ORDERED: POTA10CA43 PO (11:09)
[2021-01-14] MEDS ORDERED: ENOX40DI SQ (11:09)
[2021-01-14] MEDS ORDERED: MENT71OI TOP (11:09)
[2021-01-14 11:49] VITALS: BP 114/52
--- NOTE | 2021-01-14 15:00 | NUR ---
Report given to ARU nurse Shital. Belongings accounted for and chart transferred. No distress noted at this time. Patient discharged to ARU with 1L NC.
[2021-01-14 16:00] VITALS: BP 100/45
[2021-01-14] MEDS ORDERED: FOLI1TAB27 PO (18:08)
[2021-01-14] MEDS ORDERED: Z GUARD REMEDY PASTE 57 GM TUBE TOP SCH (21:00)
== END 2021-01-14 16:42 | DRG 292 ==
LOC: ER 20:17 → TELE3 23:55
PROVIDERS: ADMIT Nurse Practitioner Acute Care; ATTEND Nurse Practitioner Acute Care
DX: I50.31 Acute diastolic (congestive) heart failure (principal); G82.20 Paraplegia, unspecified; D68.69 Other thrombophilia; R53.1 Weakness; T50.B95A Adverse effect of other viral vaccines, initial encounter; Y92.89 Other specified places as the place of occurrence of the external cause; E87.6 Hypokalemia; T14.8XXS Other injury of unspecified body region, sequela; W11.XXXS Fall on and from ladder, sequela; E03.9 Hypothyroidism, unspecified; I87.2 Venous insufficiency (chronic) (peripheral); Z95.0 Presence of cardiac pacemaker; R53.83 Other fatigue; Z20.822 Contact with and (suspected) exposure to COVID-19
CPT/HCPCS: 36415; 70030-TC; 71045; 83605; 83735; 84100; 84443; 85025; 85730; 87040; 93005; 93307; A4663; C1758; G0378; G0480; J1650; J1940; J7040

== ENCOUNTER 2021-01-14 15:24 | Inpatient (IN) | payer MEDICARE, OTHER ==
[~2021-01-14] VITALS: Ht 172.7 cm; Wt 93.2 kg
[~2021-01-14 15:24] MED LIST changes: +ASPI81TA31 PO; -CLOT15CR5 TP; +ENOX40DI SQ; +FURO-151 PO; -LINA145C PO; +MENT71OI TOP; +POTA10CA43 PO
[2021-01-14 16:00] VITALS: BP 100/45
[2021-01-14] MEDS ORDERED: FOLI1TAB27 PO (18:08)
[2021-01-14] MEDS ORDERED: Z GUARD REMEDY PASTE 57 GM TUBE TOP PRN (18:45)
--- NOTE | 2021-01-14 19:00 | NUR ---
Received 86 year old male patient from [facility] unit with admitting diagnosis of CHF Exacerbation, generalized weakness. AAO X 3 on 2L via Nasal Canula saturating 98% vital sings stable. Incontinent of bladder and continent of bowel at bed side commode. kept clean and dry. No known allergies, by AM shift Nurse Dr. EMILY Guaman and Dr. Ferrell notified of admission told to reconcile meds. said OK. Meds reconciled skin assessment done skin intact. MASD on sacral area Right side under Breast Redness, scrotal area redness, bilateral leg dry with scab noted. Photos taken and placed in chart. Treatment as ordered done. Responsible republican called and notified about patient admit. oriented patient to unit and room. All belongings counted and belonging list placed in chart. safety precaution observed all time. Continue monitoring patient. Call light with in reach.
[2021-01-14] MEDS ORDERED: ACETAMINOPHEN 325 MG TABLET PO PRN (19:45)
[2021-01-14 20:00] VITALS: BP 117/64
[2021-01-14] MEDS ORDERED: ENOXAPARIN SODIUM 40 MG/0.4 ML DISP.SYRIN SQ SCH (21:00)
--- NOTE | 2021-01-14 21:30 | NUR ---
Patient Platelets count Noted 97K/u patient has order of Enoxaparin 40 mg sub Q. Notified Dr. Mujica with order to D/C Enoxaparin but continue ASA as ordered. Order noted and carried out. All due medication administered as per MD order. Patient tolerated well no adverse reaction noted. All needs anticipated will continue with plan of care. Call light with in reach.
[2021-01-14] MEDS: DOCUSATE SODIUM 100 MG CAPSULE PO SCH (21:52)
[2021-01-14] MEDS: ATORVASTATIN 10 MG TABLET PO SCH (21:52)
[2021-01-14] MEDS: Z GUARD REMEDY PASTE 57 GM TUBE TOP SCH (22:13)
[2021-01-15 04:00] VITALS: BP 123/62
--- NOTE | 2021-01-15 04:56 | NUR ---
patient slept throughout the night with no difficulty easily arousable. no acute distress or discomfort noted all needs anticipated will endorse accordingly to AM shift.
[2021-01-15] MEDS: LEVOTHYROXINE SODIUM 112 MCG TABLET PO SCH (06:36)
[2021-01-15 08:00] VITALS: BP 125/52
[2021-01-15] MEDS: POTASSIUM CHLORIDE 10 MEQ TAB.PRT.SR PO SCH (08:46)
[2021-01-15] MEDS: FOLIC ACID 1 MG TABLET PO SCH (08:46)
[2021-01-15] MEDS: ASPIRIN 81 MG TAB.CHEW PO SCH (08:47)
[2021-01-15] MEDS: FUROSEMIDE 40 MG TABLET PO SCH (08:47)
[2021-01-15] MEDS: FAMOTIDINE 20 MG TABLET PO SCH (08:47)
[2021-01-15] MEDS: Z GUARD REMEDY PASTE 57 GM TUBE TOP SCH ×2 (08:48→20:49)
[2021-01-15] MEDS ORDERED: GABAPENTIN 300 MG CAPSULE PO SCH (09:00)
--- NOTE | 2021-01-15 11:05 | NUR ---
WOUND CARE CONSULT: PT PRESENTS WITH GLUTEAL CREASE INCONTINENCE ASSOCIATED SKIN DAMAGE AND SLIGHT RASH, PRESENT ON ADMISSION. RECOMMENDATIONS MADE FOR SKIN PROTECTION. DISCUSSED WITH NURSING STAFF. PT IS ON FIRST STEP ARPIT SERNA MD IN AGREEMENT WITH PLAN OF CARE. Addendum: 01/15/21 at 1107 by KELLEY BERRY RN Amended: Links added.
--- NOTE | 2021-01-15 11:50 | NUR ---
RECEIVED PATIENT FROM BLAIR RN. PATIENT IN BED ASLEEP, EASY TO WAKE UP. AOX3. AT BEDSIDE WITH PATIENT. PATIENT DENIES SOB OR CHEST PAIN AT THIS TIME. NO SIGNS OF DISTRESS AT THIS TIME. SAFETY AND FALL PREVENTION IN PLACE. CALL LIGHT IN REACH. BED IN LOW AND LOCKED POSITION. WILL CONTINUE TO MONITOR.
[2021-01-15] MEDS ORDERED: GABAPENTIN 100 MG CAPSULE PO SCH (13:00)
[2021-01-15 15:49] VITALS: BP 112/54
[2021-01-15] MEDS: CLOTRIMAZOLE 1% CREAM 30 GM TUBE TOP SCH (17:39)
[2021-01-15 20:03] VITALS: BP 116/56
[2021-01-15] MEDS: ATORVASTATIN 10 MG TABLET PO SCH (20:45)
[2021-01-15] MEDS: DOCUSATE SODIUM 100 MG CAPSULE PO SCH (20:45)
[2021-01-16 04:50] VITALS: BP 123/59
--- NOTE | 2021-01-16 06:21 | NUR ---
Patient alert and able to make needs known.O2 at 2Lpm via NC saturating 98 .No acute distress noted. Denies pain. HOB elevated.Off loaded monica.heels. Wound care provided on sacral area. Continue safety measures. All needs anticipated and met accordingly.
[2021-01-16 06:22] LABS: BASOPHILS % (AUTO) 0.2 % (0.0-2.0); EOSINOPHILS # (AUTO) 0.2 K/uL (0.0-0.7); EOSINOPHILS % (AUTO) 3.9 % (0.0-7.0); HEMATOCRIT 37.2 % (36.7-47.1); HEMOGLOBIN 12.1 g/dL (12.5-16.3); LYMPHOCYTES # (AUTO) 1.5 K/uL (20.0-40.0); LYMPHOCYTES % (AUTO) 24.1 % (20.5-51.5); MEAN CORPUSCULAR HEMOGLOBIN 28.2 uug (23.8-33.4); MEAN CORPUSCULAR HGB CONC 33 g/dL (32.5-36.3); MONOCYTES # (AUTO) 0.6 K/uL (2.0-10.0); MONOCYTES % (AUTO) 9.6 % (0.0-11.0); NEUTROPHILS # (AUTO) 3.9 K/uL (1.8-8.9); NEUTROPHILS % (AUTO) 62.2 % (38.5-71.5); PLATELET COUNT (AUTO) 101 K/uL (152-348); RED BLOOD CELL COUNT(AUTO) 4.27 MIL/uL (4.06-5.63); WHITE BLOOD COUNT (AUTO) 6.3 K/uL (3.6-10.2)
[2021-01-16] MEDS: LEVOTHYROXINE SODIUM 112 MCG TABLET PO SCH (06:31)
[2021-01-16 06:33] LABS: CREATININE 0.8 mg/dL (0.6-1.3); MAGNESIUM 2.2 mg/dL (1.8-2.4); PHOSPHOROUS 2.8 mg/dL (2.5-4.9); POTASSIUM 3.4 mmol/L (3.5-5.1)
--- NOTE | 2021-01-16 07:41 | NUR ---
Received sleeping but easily arousable. No distress noted. No facial grimacing noted. Safety measures maintained. Kept comfortable.
[2021-01-16 08:00] VITALS: BP 129/52
[2021-01-16] MEDS: GABAPENTIN 100 MG CAPSULE PO SCH ×3 (08:27→16:03)
[2021-01-16] MEDS: POTASSIUM CHLORIDE 10 MEQ TAB.PRT.SR PO SCH (08:27)
[2021-01-16] MEDS: FAMOTIDINE 20 MG TABLET PO SCH (08:27)
[2021-01-16] MEDS: FOLIC ACID 1 MG TABLET PO SCH (08:27)
[2021-01-16] MEDS: ASPIRIN 81 MG TAB.CHEW PO SCH (08:27)
[2021-01-16] MEDS: FUROSEMIDE 40 MG TABLET PO SCH (08:27)
[2021-01-16] MEDS: Z GUARD REMEDY PASTE 57 GM TUBE TOP SCH ×2 (08:28→20:21)
[2021-01-16] MEDS: CLOTRIMAZOLE 1% CREAM 30 GM TUBE TOP SCH ×2 (08:28→16:03)
[2021-01-16] MEDS ORDERED: POTASSIUM CHLORIDE 20 MEQ TAB.PRT.SR PO ONE (09:45)
--- NOTE | 2021-01-16 09:48 | NUR ---
Patient at rehab at this time.
--- NOTE | 2021-01-16 10:26 | NUR ---
Report given to Charles MORALES
--- NOTE | 2021-01-16 11:29 | NUR ---
care taken over now, while patient in rehab, alert, oriented, no complained of sob, denied dyspnea. K+ .3.4, another 20meq po potassium given.. on bedrest now
[2021-01-16 16:17] VITALS: BP 16/52
[2021-01-16 19:58] VITALS: BP 117/52
[2021-01-16] MEDS: ATORVASTATIN 10 MG TABLET PO SCH (20:22)
[2021-01-16] MEDS: DOCUSATE SODIUM 100 MG CAPSULE PO SCH (20:22)
--- NOTE | 2021-01-16 20:58 | NUR ---
awake alert and oriented x3-4 forgetful at times. VSS. Needs attended. Fall precautions maintained. Kept comfortable. On O2 @ 3L via nasal cannula. No respiratory distress noted. Will monitor patient. Denies any SOB or chest discomfort. All needs attended.
[2021-01-17 04:30] VITALS: BP 122/62
[2021-01-17] MEDS: LEVOTHYROXINE SODIUM 112 MCG TABLET PO SCH (06:33)
[2021-01-17 08:00] VITALS: BP 139/69
[2021-01-17] MEDS: FOLIC ACID 1 MG TABLET PO SCH (09:22)
[2021-01-17] MEDS: FUROSEMIDE 40 MG TABLET PO SCH (09:22)
[2021-01-17] MEDS: FAMOTIDINE 20 MG TABLET PO SCH (09:22)
[2021-01-17] MEDS: ASPIRIN 81 MG TAB.CHEW PO SCH (09:22)
[2021-01-17] MEDS: POTASSIUM CHLORIDE 10 MEQ TAB.PRT.SR PO SCH (09:22)
[2021-01-17] MEDS: GABAPENTIN 100 MG CAPSULE PO SCH ×3 (09:22→17:36)
[2021-01-17] MEDS: Z GUARD REMEDY PASTE 57 GM TUBE TOP SCH ×2 (09:23→20:18)
[2021-01-17] MEDS: CLOTRIMAZOLE 1% CREAM 30 GM TUBE TOP SCH ×2 (09:23→17:33)
[2021-01-17] MEDS: MIRALAX 17 GM POWD.PACK PO SCH (10:15)
--- NOTE | 2021-01-17 10:17 | NUR ---
REFUSED TO TAKE MIRALAX TODAY HE AND PT STATES HE HAD A LG BM YESTERDAY IN THERAPY
[2021-01-17 16:32] VITALS: BP 113/52
[2021-01-17 20:07] VITALS: BP 118/59
[2021-01-17] MEDS: DOCUSATE SODIUM 100 MG CAPSULE PO SCH (20:18)
[2021-01-17] MEDS: ATORVASTATIN 10 MG TABLET PO SCH (20:18)
--- NOTE | 2021-01-17 21:00 | NUR ---
Received pt sleeping comfortably. Aroused easily to verbal stimuli. Alert and oriented x2-3, German speaking, able to make needs known. On 2L O2 via NC, no acute distress noted. Denies pain/ discomfort. Safety measures maintained. Call light and personal items within reach. Will continue to monitor.
--- NOTE | 2021-01-17 21:01 | NUR ---
INDIVIDUALIZED PLAN OF CARE
[2021-01-18 05:09] VITALS: BP 126/61
[2021-01-18] MEDS: LEVOTHYROXINE SODIUM 112 MCG TABLET PO SCH (06:40)
[2021-01-18 08:00] VITALS: BP 110/43
[2021-01-18] MEDS: ASPIRIN 81 MG TAB.CHEW PO SCH (09:19)
[2021-01-18] MEDS: FOLIC ACID 1 MG TABLET PO SCH (09:19)
[2021-01-18] MEDS: FUROSEMIDE 40 MG TABLET PO SCH (09:19)
[2021-01-18] MEDS: MIRALAX 17 GM POWD.PACK PO SCH (09:19)
[2021-01-18] MEDS: POTASSIUM CHLORIDE 10 MEQ TAB.PRT.SR PO SCH (09:19)
[2021-01-18] MEDS: GABAPENTIN 100 MG CAPSULE PO SCH ×3 (09:19→16:11)
[2021-01-18] MEDS: FAMOTIDINE 20 MG TABLET PO SCH (09:19)
[2021-01-18] MEDS: Z GUARD REMEDY PASTE 57 GM TUBE TOP SCH ×2 (09:20→22:06)
[2021-01-18] MEDS: CLOTRIMAZOLE 1% CREAM 30 GM TUBE TOP SCH ×2 (09:20→16:11)
--- NOTE | 2021-01-18 10:00 | NUR ---
Received pt in bed, A&Ox3-4, able to make needs known, no acute distress. VSS at this time. Pt on 2 L NC, O2 saturation 96% at this time. Pt denies pain/discomfort at this time. Due medications given per order, no a/r noted. Safety measures in place. Call light and belongings within reach. Will continue to monitor.
[2021-01-18 16:00] VITALS: BP 117/54
--- NOTE | 2021-01-18 18:06 | NUR ---
EOSS: Pt in bed, no acute distress, denies pain/discomfort at this time. VSS. Pt saturating 98% on 2 L NC, titrated down to 1 L, 98%. Pt now on RA saturating 96%. Wound care administered per order, pt tolerated well. Pt's Sossi at bedside this afternoon, spoke with pt and regarding nursing care provided. Safety measures and fall precautions maintained. Call light and belongings within reach. Will endorse care to pigment mixer nurse.
[2021-01-18 20:20] VITALS: BP 122/56
[2021-01-18] MEDS: DOCUSATE SODIUM 100 MG CAPSULE PO SCH (22:05)
[2021-01-18] MEDS: ATORVASTATIN 10 MG TABLET PO SCH (22:05)
--- NOTE | 2021-01-19 03:06 | NUR ---
Received pt resting in bed. Aroused easily to verbal stimuli. Axox2, Maori speaking, able to make needs known. Denies any pain at the moment. On 1L NC saturating @ 96%, no SOB noted. All due medication administered and tolerated well. Needs attended to. Safety measures maintained. Call light and personal items within reach. Will continue plan of care.
[2021-01-19 04:35] VITALS: BP 126/57
[2021-01-19] MEDS: LEVOTHYROXINE SODIUM 112 MCG TABLET PO SCH (06:32)
--- NOTE | 2021-01-19 07:30 | NUR ---
Received awake and responsive. Received on oxygen 0.5 Lpm via nc tolerated. Breathing even and non labored. Able to make needs known in simple [place]an. No facial grimacing noted. No complaints at this time. Kept comfortable. Will continue to monitor.
[2021-01-19 07:50] VITALS: BP 125/59
[2021-01-19] MEDS: ASPIRIN 81 MG TAB.CHEW PO SCH (09:31)
[2021-01-19] MEDS: POTASSIUM CHLORIDE 10 MEQ TAB.PRT.SR PO SCH (09:31)
[2021-01-19] MEDS: GABAPENTIN 100 MG CAPSULE PO SCH ×3 (09:31→17:39)
[2021-01-19] MEDS: FAMOTIDINE 20 MG TABLET PO SCH (09:31)
[2021-01-19] MEDS: FOLIC ACID 1 MG TABLET PO SCH (09:31)
[2021-01-19] MEDS: FUROSEMIDE 40 MG TABLET PO SCH (09:31)
[2021-01-19] MEDS: MIRALAX 17 GM POWD.PACK PO SCH (09:32)
[2021-01-19] MEDS: Z GUARD REMEDY PASTE 57 GM TUBE TOP SCH ×2 (09:32→21:48)
[2021-01-19] MEDS: CLOTRIMAZOLE 1% CREAM 30 GM TUBE TOP SCH ×2 (12:05→17:16)
--- NOTE | 2021-01-19 16:49 | NUR ---
On room air spo2 90%. Oxygen increased to 0.5 lpm via nc, spo2 97%. No respiratory distress noted.
--- NOTE | 2021-01-19 18:59 | NUR ---
Alert and oriented able to make needs known in simple bhutanese. No resp distress noted spo2 97% on 0.5lpm via nc. C/o hip pain given tylenol as ordered. Patient is kept comfortable. Needs attended.
[2021-01-19 20:59] VITALS: BP 109/56
[2021-01-19] MEDS: ATORVASTATIN 10 MG TABLET PO SCH (21:47)
[2021-01-19] MEDS: DOCUSATE SODIUM 100 MG CAPSULE PO SCH (21:47)
[2021-01-20 05:02] VITALS: BP 132/80
--- NOTE | 2021-01-20 07:25 | NUR ---
Received awake and watching tv. In no acute distress. Spo2 95 % at 0.5Lpm via nc. Denies pain. Righ Iv hand intact and patent. Safety measures in place. Kept comfortable. Call light in reach. Will continue to monitor.
[2021-01-20] MEDS: LEVOTHYROXINE SODIUM 112 MCG TABLET PO SCH (07:30)
[2021-01-20 07:31] VITALS: BP 116/61
--- NOTE | 2021-01-20 07:49 | NUR ---
re: Synthroid medication- not administered. Spoke with glove maker nurse and she confirmed she gave it the previous shift.
[2021-01-20] MEDS: POTASSIUM CHLORIDE 10 MEQ TAB.PRT.SR PO SCH (08:07)
[2021-01-20] MEDS: FOLIC ACID 1 MG TABLET PO SCH (08:07)
[2021-01-20] MEDS: ASPIRIN 81 MG TAB.CHEW PO SCH (08:07)
[2021-01-20] MEDS: FAMOTIDINE 20 MG TABLET PO SCH (08:07)
[2021-01-20] MEDS: GABAPENTIN 100 MG CAPSULE PO SCH ×3 (08:07→16:45)
[2021-01-20] MEDS: FUROSEMIDE 40 MG TABLET PO SCH (08:07)
[2021-01-20] MEDS: CLOTRIMAZOLE 1% CREAM 30 GM TUBE TOP SCH ×2 (08:08→16:45)
[2021-01-20] MEDS: Z GUARD REMEDY PASTE 57 GM TUBE TOP SCH ×2 (08:08→20:55)
[2021-01-20] MEDS: MIRALAX 17 GM POWD.PACK PO SCH (08:08)
--- NOTE | 2021-01-20 15:30 | NUR ---
Patient tolerating rehab on room air, showered with PT. Spo2 noted 97-98%. Denies chest pain or sob. In no acute distress. Will continue to monitor.
[2021-01-20 15:31] VITALS: BP 109/53
--- NOTE | 2021-01-20 19:14 | NUR ---
Patient is sleeping comfortably. In no acute distress. Tolerating room air. Breathing even and non labored. /dtr were here, no complaints. Safety measures maintained. Kept comfortable. Needs attended. Endorsed accordingly.
--- NOTE | 2021-01-20 20:20 | NUR ---
INTERDISCIPLINARY TEAM CONFERENCE
[2021-01-20 20:39] VITALS: BP 101/59
[2021-01-20] MEDS: ATORVASTATIN 10 MG TABLET PO SCH (20:55)
[2021-01-20] MEDS: DOCUSATE SODIUM 100 MG CAPSULE PO SCH (20:55)
[2021-01-21 04:00] VITALS: BP 109/53
[2021-01-21] MEDS: LEVOTHYROXINE SODIUM 112 MCG TABLET PO SCH (06:00)
--- NOTE | 2021-01-21 06:17 | NUR ---
Shift End Report: Vs stable. Slept well. No significant event reported all night. All needs attended and met. Continue current rehab plan of care.
[2021-01-21 07:52] VITALS: BP 136/86
[2021-01-21] MEDS: ASPIRIN 81 MG TAB.CHEW PO SCH (08:43)
[2021-01-21] MEDS: FAMOTIDINE 20 MG TABLET PO SCH (08:43)
[2021-01-21] MEDS: FUROSEMIDE 40 MG TABLET PO SCH (08:44)
[2021-01-21] MEDS: FOLIC ACID 1 MG TABLET PO SCH (08:44)
[2021-01-21] MEDS: GABAPENTIN 100 MG CAPSULE PO SCH ×3 (08:44→17:21)
[2021-01-21] MEDS: CLOTRIMAZOLE 1% CREAM 30 GM TUBE TOP SCH ×2 (08:45→17:21)
[2021-01-21] MEDS: POTASSIUM CHLORIDE 10 MEQ TAB.PRT.SR PO SCH (08:45)
[2021-01-21] MEDS: Z GUARD REMEDY PASTE 57 GM TUBE TOP SCH ×2 (08:47→20:38)
[2021-01-21] MEDS: MIRALAX 17 GM POWD.PACK PO SCH (08:47)
[2021-01-21 15:27] VITALS: BP 119/56
--- NOTE | 2021-01-21 19:40 | NUR ---
Sleeping comfortably during initial rounds with HOB slightly elevated. No s/s of respiratory distress noted. HL on RH intact and patent. No s/s of infiltration noted. Safety measures and fall prevention maintained. Continue care as planned.
[2021-01-21 20:00] VITALS: BP 115/51
[2021-01-21] MEDS: DOCUSATE SODIUM 100 MG CAPSULE PO SCH (20:37)
[2021-01-21] MEDS: ATORVASTATIN 10 MG TABLET PO SCH (20:37)
[2021-01-22 04:00] VITALS: BP 124/59
--- NOTE | 2021-01-22 05:42 | NUR ---
Shift End Report: Slept good. No complaint presented all night. No significant event reported. Continue current rehab plan of care.
[2021-01-22] MEDS: LEVOTHYROXINE SODIUM 112 MCG TABLET PO SCH (06:08)
[2021-01-22 07:45] VITALS: BP 144/60
[2021-01-22] MEDS: ASPIRIN 81 MG TAB.CHEW PO SCH (08:41)
[2021-01-22] MEDS: POTASSIUM CHLORIDE 10 MEQ TAB.PRT.SR PO SCH (08:41)
[2021-01-22] MEDS: FOLIC ACID 1 MG TABLET PO SCH (08:41)
[2021-01-22] MEDS: GABAPENTIN 100 MG CAPSULE PO SCH ×3 (08:41→17:40)
[2021-01-22] MEDS: FAMOTIDINE 20 MG TABLET PO SCH (08:41)
[2021-01-22] MEDS: FUROSEMIDE 40 MG TABLET PO SCH (08:41)
[2021-01-22] MEDS: MIRALAX 17 GM POWD.PACK PO SCH (08:41)
[2021-01-22] MEDS: Z GUARD REMEDY PASTE 57 GM TUBE TOP SCH ×2 (08:42→20:19)
[2021-01-22] MEDS: CLOTRIMAZOLE 1% CREAM 30 GM TUBE TOP SCH ×2 (08:42→17:42)
[2021-01-22] MEDS: ENSURE ENLIVE (VAN) 240 ML LIQUID PO SCH (08:44)
[2021-01-22 15:36] VITALS: BP 95/44
[2021-01-22 20:00] VITALS: BP 121/62
[2021-01-22] MEDS: DOCUSATE SODIUM 100 MG CAPSULE PO SCH (20:16)
[2021-01-22] MEDS: ATORVASTATIN 10 MG TABLET PO SCH (20:17)
--- NOTE | 2021-01-22 23:00 | NUR ---
Received pt resting in bed and watching tv. AAO x3, Sinhala speaking, able to make needs known. No acute distress noted. Denies pain/ discomfort. Due meds given as ordered. Turned and repositioned. Both heels offloaded. Safety measures maintained. Call light and personal items within reach. Will continue to monitor.
[2021-01-23 05:29] VITALS: BP 119/57
[2021-01-23] MEDS: LEVOTHYROXINE SODIUM 112 MCG TABLET PO SCH (06:32)
[2021-01-23 08:00] VITALS: BP 128/54
[2021-01-23] MEDS: ASPIRIN 81 MG TAB.CHEW PO SCH (08:18)
[2021-01-23] MEDS: ENSURE ENLIVE (VAN) 240 ML LIQUID PO SCH (08:19)
[2021-01-23] MEDS: MIRALAX 17 GM POWD.PACK PO SCH (08:19)
[2021-01-23] MEDS: GABAPENTIN 100 MG CAPSULE PO SCH ×3 (08:19→17:04)
[2021-01-23] MEDS: CLOTRIMAZOLE 1% CREAM 30 GM TUBE TOP SCH ×2 (08:20→16:44)
[2021-01-23] MEDS: Z GUARD REMEDY PASTE 57 GM TUBE TOP SCH ×2 (08:20→21:20)
[2021-01-23] MEDS: FOLIC ACID 1 MG TABLET PO SCH (09:00)
[2021-01-23] MEDS: FUROSEMIDE 40 MG TABLET PO SCH (09:00)
[2021-01-23] MEDS: POTASSIUM CHLORIDE 10 MEQ TAB.PRT.SR PO SCH (09:00)
[2021-01-23] MEDS: FAMOTIDINE 20 MG TABLET PO SCH (09:00)
--- NOTE | 2021-01-23 10:00 | NUR ---
Patient refused to take due folic acid, lasix, potassium and pepcid at this time. Explained risks and benefits but patient still refused. Dr. Moreno made aware with no new order
[2021-01-23 16:08] VITALS: BP 137/55
[2021-01-23 20:00] VITALS: BP 119/58
[2021-01-23 20:31] VITALS: BP 119/58
[2021-01-23] MEDS: ATORVASTATIN 10 MG TABLET PO SCH (21:19)
[2021-01-23] MEDS: DOCUSATE SODIUM 100 MG CAPSULE PO SCH (21:19)
[2021-01-24 05:11] VITALS: BP 111/51
[2021-01-24] MEDS: LEVOTHYROXINE SODIUM 112 MCG TABLET PO SCH (06:02)
[2021-01-24 08:00] VITALS: BP 119/53
[2021-01-24] MEDS: MIRALAX 17 GM POWD.PACK PO SCH (09:00)
[2021-01-24] MEDS: ASPIRIN 81 MG TAB.CHEW PO SCH (09:20)
[2021-01-24] MEDS: FAMOTIDINE 20 MG TABLET PO SCH (09:20)
[2021-01-24] MEDS: FOLIC ACID 1 MG TABLET PO SCH (09:20)
[2021-01-24] MEDS: POTASSIUM CHLORIDE 10 MEQ TAB.PRT.SR PO SCH (09:20)
[2021-01-24] MEDS: GABAPENTIN 100 MG CAPSULE PO SCH ×3 (09:20→16:44)
[2021-01-24] MEDS: FUROSEMIDE 40 MG TABLET PO SCH (09:20)
[2021-01-24] MEDS: Z GUARD REMEDY PASTE 57 GM TUBE TOP SCH ×2 (09:21→21:00)
[2021-01-24] MEDS: ENSURE ENLIVE (VAN) 240 ML LIQUID PO SCH (09:21)
[2021-01-24] MEDS: CLOTRIMAZOLE 1% CREAM 30 GM TUBE TOP SCH ×2 (09:21→16:44)
[2021-01-24 16:04] VITALS: BP 131/62
--- NOTE | 2021-01-24 18:30 | NUR ---
Pt is in no acute distress. PT denies any c/o pain. Call light is within reach.
[2021-01-24 20:00] VITALS: BP 125/54
[2021-01-24] MEDS: DOCUSATE SODIUM 100 MG CAPSULE PO SCH (22:15)
[2021-01-24] MEDS: ATORVASTATIN 10 MG TABLET PO SCH (22:15)
[2021-01-25 04:00] VITALS: BP 113/52
[2021-01-25] MEDS: LEVOTHYROXINE SODIUM 112 MCG TABLET PO SCH (07:16)
[2021-01-25 08:00] VITALS: BP 131/49
[2021-01-25] MEDS: FUROSEMIDE 40 MG TABLET PO SCH (08:29)
[2021-01-25] MEDS: ASPIRIN 81 MG TAB.CHEW PO SCH (08:29)
[2021-01-25] MEDS: GABAPENTIN 100 MG CAPSULE PO SCH ×3 (08:29→17:06)
[2021-01-25] MEDS: ENSURE ENLIVE (VAN) 240 ML LIQUID PO SCH (08:30)
[2021-01-25] MEDS: MIRALAX 17 GM POWD.PACK PO SCH (08:36)
[2021-01-25] MEDS: CLOTRIMAZOLE 1% CREAM 30 GM TUBE TOP SCH ×2 (08:37→17:06)
[2021-01-25] MEDS: Z GUARD REMEDY PASTE 57 GM TUBE TOP SCH ×2 (08:38→21:06)
[2021-01-25] MEDS: POTASSIUM CHLORIDE 10 MEQ TAB.PRT.SR PO SCH (08:56)
[2021-01-25] MEDS: FAMOTIDINE 20 MG TABLET PO SCH (08:56)
[2021-01-25] MEDS: FOLIC ACID 1 MG TABLET PO SCH (08:56)
[2021-01-25 17:02] VITALS: BP 124/60
--- NOTE | 2021-01-25 18:48 | NUR ---
Patient remains alert, oriented x 3, not in any form of distress, on room air. He denies any pain or discomfort. Due medications administered and tolerated well. Patient participated with therapeutic exercises. Needs attended to promptly. Call light and frequently used items placed within patient's reach.
[2021-01-25 20:00] VITALS: BP 136/61
[2021-01-25] MEDS: ATORVASTATIN 10 MG TABLET PO SCH (21:05)
[2021-01-25] MEDS: DOCUSATE SODIUM 100 MG CAPSULE PO SCH (21:05)
[2021-01-26 04:00] VITALS: BP 124/52
--- NOTE | 2021-01-26 06:09 | NUR ---
Shift End report: VSS. Slept well. No complaint presented all night. All needs attended and met. Continue current rehab plan of care.
[2021-01-26] MEDS: LEVOTHYROXINE SODIUM 112 MCG TABLET PO SCH (06:21)
[2021-01-26 08:00] VITALS: BP 126/58
[2021-01-26] MEDS: GABAPENTIN 100 MG CAPSULE PO SCH ×3 (09:29→17:13)
[2021-01-26] MEDS: ASPIRIN 81 MG TAB.CHEW PO SCH (09:29)
[2021-01-26] MEDS: FUROSEMIDE 40 MG TABLET PO SCH (09:29)
[2021-01-26] MEDS: POTASSIUM CHLORIDE 10 MEQ TAB.PRT.SR PO SCH (09:29)
[2021-01-26] MEDS: FOLIC ACID 1 MG TABLET PO SCH (09:29)
[2021-01-26] MEDS: FAMOTIDINE 20 MG TABLET PO SCH (09:29)
[2021-01-26] MEDS: ENSURE ENLIVE (VAN) 240 ML LIQUID PO SCH (09:30)
[2021-01-26] MEDS: CLOTRIMAZOLE 1% CREAM 30 GM TUBE TOP SCH ×2 (09:30→17:13)
[2021-01-26] MEDS: MIRALAX 17 GM POWD.PACK PO SCH (09:30)
[2021-01-26] MEDS: Z GUARD REMEDY PASTE 57 GM TUBE TOP SCH ×2 (09:31→20:18)
[2021-01-26 15:48] VITALS: BP 94/44
--- NOTE | 2021-01-26 18:45 | NUR ---
Took over care for patient mid-shift. Patient has been stable. Medications given. Safety precautions are in place. Will endorse to oncoming nurse.
--- NOTE | 2021-01-26 19:35 | NUR ---
Awake, alert and sitting on the chair during initial rounds. No s/s of respiratory distress. Denies any pain/discomforts at this time. Safety measures and fall prevention maintained. Continue care as planned.
[2021-01-26 19:44] VITALS: BP 120/56
[2021-01-26] MEDS: ATORVASTATIN 10 MG TABLET PO SCH (20:18)
[2021-01-26] MEDS: DOCUSATE SODIUM 100 MG CAPSULE PO SCH (20:18)
[2021-01-27 04:53] VITALS: BP 138/58
--- NOTE | 2021-01-27 06:08 | NUR ---
Shift End Report: Slept well. VSS. No complaint presented all night. No significant event reported. Continue current rehab plan of care.
[2021-01-27] MEDS: LEVOTHYROXINE SODIUM 112 MCG TABLET PO SCH (06:17)
[2021-01-27 06:56] LABS: BASOPHILS % (AUTO) 0.3 % (0.0-2.0); EOSINOPHILS # (AUTO) 0.3 K/uL (0.0-0.7); EOSINOPHILS % (AUTO) 3.5 % (0.0-7.0); HEMATOCRIT 38.9 % (36.7-47.1); HEMOGLOBIN 12.8 g/dL (12.5-16.3); LYMPHOCYTES # (AUTO) 1.7 K/uL (20.0-40.0); LYMPHOCYTES % (AUTO) 18.7 % (20.5-51.5); MEAN CORPUSCULAR HEMOGLOBIN 28.7 uug (23.8-33.4); MEAN CORPUSCULAR HGB CONC 33 g/dL (32.5-36.3); MONOCYTES # (AUTO) 0.6 K/uL (2.0-10.0); MONOCYTES % (AUTO) 6.6 % (0.0-11.0); NEUTROPHILS # (AUTO) 6.3 K/uL (1.8-8.9); NEUTROPHILS % (AUTO) 70.9 % (38.5-71.5); PLATELET COUNT (AUTO) 147 K/uL (152-348); RED BLOOD CELL COUNT(AUTO) 4.46 MIL/uL (4.06-5.63); WHITE BLOOD COUNT (AUTO) 8.9 K/uL (3.6-10.2)
--- NOTE | 2021-01-27 07:30 | NUR ---
received patient awake alert and oriented x2. no sign of distress. patient denies any signs of pain. patient sitting up on bed. no iv access. will continue to monitor.
[2021-01-27 07:46] LABS: BILIRUBIN,TOTAL 0.9 mg/dL (0.2-1.0); CREATININE 0.8 mg/dL (0.6-1.3); MAGNESIUM 2.2 mg/dL (1.8-2.4); PHOSPHOROUS 2.9 mg/dL (2.5-4.9); TOTAL PROTEIN, SERUM 7.2 g/dL (6.4-8.2)
[2021-01-27 08:00] VITALS: BP 142/63
[2021-01-27] MEDS: ASPIRIN 81 MG TAB.CHEW PO SCH (09:06)
[2021-01-27] MEDS: ENSURE ENLIVE (VAN) 240 ML LIQUID PO SCH (09:06)
[2021-01-27] MEDS: POTASSIUM CHLORIDE 10 MEQ TAB.PRT.SR PO SCH (09:07)
[2021-01-27] MEDS: CLOTRIMAZOLE 1% CREAM 30 GM TUBE TOP SCH ×2 (09:07→17:40)
[2021-01-27] MEDS: FOLIC ACID 1 MG TABLET PO SCH (09:07)
[2021-01-27] MEDS: FUROSEMIDE 40 MG TABLET PO SCH (09:07)
[2021-01-27] MEDS: GABAPENTIN 100 MG CAPSULE PO SCH ×3 (09:07→17:09)
[2021-01-27] MEDS: MIRALAX 17 GM POWD.PACK PO SCH (09:07)
[2021-01-27] MEDS: FAMOTIDINE 20 MG TABLET PO SCH (09:07)
[2021-01-27] MEDS: Z GUARD REMEDY PASTE 57 GM TUBE TOP SCH ×2 (09:08→20:19)
--- NOTE | 2021-01-27 15:57 | NUR ---
INTERDISCIPLINARY TEAM CONFERENCE
[2021-01-27 16:00] VITALS: BP 110/52
--- NOTE | 2021-01-27 18:53 | NUR ---
patient resting comfortably in bed, no complains of any pain or distress at this time. will endorse to oncoming shift.
--- NOTE | 2021-01-27 19:35 | NUR ---
In bed, awake, with HOB elevated. Very pleasant and cooperative. No s/s of respiratory distress, no complaint presented. Safety measures and fall prevention maintained. Continue care as planned.
[2021-01-27 20:00] VITALS: BP 119/58
[2021-01-27] MEDS: ATORVASTATIN 10 MG TABLET PO SCH (20:19)
[2021-01-27] MEDS: DOCUSATE SODIUM 100 MG CAPSULE PO SCH (20:19)
[2021-01-28 05:08] VITALS: BP 122/54
[2021-01-28] MEDS: LEVOTHYROXINE SODIUM 112 MCG TABLET PO SCH (06:09)
--- NOTE | 2021-01-28 06:12 | NUR ---
Shift End Report: VSS. quite confused and disoriented to place, time and situation. Slept well. No complaint presented all night. All needs attended and met. Continue current rehab plan of care.
--- NOTE | 2021-01-28 07:30 | NUR ---
received morning report. patient sitting up in bed. no complains of any pain or discomfort at this time. on room air. alert and oriented x3. will continue monitoring.
[2021-01-28 08:41] VITALS: BP 121/56
[2021-01-28] MEDS: FUROSEMIDE 40 MG TABLET PO SCH (08:42)
[2021-01-28] MEDS: MIRALAX 17 GM POWD.PACK PO SCH (08:42)
[2021-01-28] MEDS: FOLIC ACID 1 MG TABLET PO SCH (08:42)
[2021-01-28] MEDS: POTASSIUM CHLORIDE 10 MEQ TAB.PRT.SR PO SCH (08:42)
[2021-01-28] MEDS: ASPIRIN 81 MG TAB.CHEW PO SCH (08:42)
[2021-01-28] MEDS: GABAPENTIN 100 MG CAPSULE PO SCH ×3 (08:43→16:28)
[2021-01-28] MEDS: ENSURE ENLIVE (VAN) 240 ML LIQUID PO SCH (08:43)
[2021-01-28] MEDS: FAMOTIDINE 20 MG TABLET PO SCH (08:43)
[2021-01-28] MEDS: Z GUARD REMEDY PASTE 57 GM TUBE TOP SCH ×2 (08:44→20:37)
[2021-01-28] MEDS: CLOTRIMAZOLE 1% CREAM 30 GM TUBE TOP SCH ×2 (08:44→16:31)
[2021-01-28 15:47] VITALS: BP 134/62
--- NOTE | 2021-01-28 18:22 | NUR ---
END OF SHIFT pt in bed resting, pt a/ox2 forgetful, pt has excoriation on sacrum, pt on room air, no signs of distress, no reports of pain at this time, pt ambulatory with walker with physical therapy, voids via diaper. pt has pacemaker on the left chest wall. daily weight is 206.3. all medications given as ordered, bed in low and locked position, call light within reach, will endorse to oncoming nurse.
[2021-01-28 20:00] VITALS: BP 117/63
[2021-01-28] MEDS: DOCUSATE SODIUM 100 MG CAPSULE PO SCH (20:37)
[2021-01-28] MEDS: ATORVASTATIN 10 MG TABLET PO SCH (20:37)
--- NOTE | 2021-01-28 21:17 | NUR ---
Received pt resting in bed. Aroused easily to verbal stimuli. Axox3-4, Upper Sorbian speaking, able to make needs known. Denies any pain at the moment. On RA saturating @ 95%, no SOB noted. All due medication administered and tolerated well. Needs attended to. Safety measures maintained. Call light and personal items within reach. Will continue plan of care.
[2021-01-29 04:35] VITALS: BP 129/59
[2021-01-29] MEDS: LEVOTHYROXINE SODIUM 112 MCG TABLET PO SCH (05:55)
--- NOTE | 2021-01-29 07:30 | NUR ---
START OF SHIFT NOTE pt in bed resting, c/o generalized weakness, pt a/ox3, sacral excoriation, pt on room air, no signs of distress, no reports of pain at this time. pt ambulatory with walker, voiding via urinal. call light within reach, bed low and locked, fall and safety precautions in place.
[2021-01-29 08:00] VITALS: BP 132/60
[2021-01-29] MEDS: ASPIRIN 81 MG TAB.CHEW PO SCH (08:40)
[2021-01-29] MEDS: POTASSIUM CHLORIDE 10 MEQ TAB.PRT.SR PO SCH (08:40)
[2021-01-29] MEDS: GABAPENTIN 100 MG CAPSULE PO SCH ×2 (08:40→12:29)
[2021-01-29] MEDS: ENSURE ENLIVE (VAN) 240 ML LIQUID PO SCH (08:40)
[2021-01-29] MEDS: FAMOTIDINE 20 MG TABLET PO SCH (08:40)
[2021-01-29] MEDS: FUROSEMIDE 40 MG TABLET PO SCH (08:40)
[2021-01-29] MEDS: FOLIC ACID 1 MG TABLET PO SCH (08:40)
[2021-01-29] MEDS: MIRALAX 17 GM POWD.PACK PO SCH (08:41)
[2021-01-29] MEDS: Z GUARD REMEDY PASTE 57 GM TUBE TOP SCH (08:42)
[2021-01-29] MEDS: CLOTRIMAZOLE 1% CREAM 30 GM TUBE TOP SCH (08:42)
[2021-01-29] MEDS ORDERED: MAGNESIUM CITRATE 296 ML BOTTLE PO ONE (10:30)
--- NOTE | 2021-01-29 13:00 | NUR ---
DISCHARGE NOTE pt discharged home with and daughter at bedside. pt ambulatory with walker, pt is a/ox4, pt had some redness on sacrum, cleaned with soap and water, cream applied and foam dressing in tact. dry skin under right breast, and redness on scrotum, photos taken and put in chart. pt urinates via diaper, pt had BM today 01/29/21 after fleets enema. ID band removed prior to discharge. pt left with all belongings and paperwork, and prescriptions. pt left via private car with family.
[2021-01-29] MEDS ORDERED: FLEET ENEMA 133 ML BOTTLE RC PRN (13:30)
== END 2021-01-29 13:00 | disposition home health service (06) | DRG 947 ==
PROVIDERS: ADMIT Physical Medicine & Rehabilitation Pain Medicine; ATTEND Physical Medicine & Rehabilitation Pain Medicine
DX: R53.1 Weakness (principal); I50.31 Acute diastolic (congestive) heart failure; D68.59 Other primary thrombophilia; G82.20 Paraplegia, unspecified; R50.83 Postvaccination fever; E03.9 Hypothyroidism, unspecified; R53.81 Other malaise; R53.83 Other fatigue; G62.9 Polyneuropathy, unspecified; R73.03 Prediabetes; I87.2 Venous insufficiency (chronic) (peripheral); R05 Cough; R06.02 Shortness of breath; E87.6 Hypokalemia; I11.0 Hypertensive heart disease with heart failure; T14.8XXS Other injury of unspecified body region, sequela; Z87.820 Personal history of traumatic brain injury; T50.B95D Adverse effect of other viral vaccines, subsequent encounter; E66.9 Obesity, unspecified; Z68.33 Body mass index [BMI] 33.0-33.9, adult; Z87.891 Personal history of nicotine dependence; Z95.0 Presence of cardiac pacemaker
CPT/HCPCS: 36415; 83735; 84100; 84153; 85025; J1650

== ENCOUNTER 2021-10-08 14:34 | Inpatient (IN) | payer MEDICARE, OTHER ==
[~2021-10-08] VITALS: Ht 172.7 cm; Wt 90.7 kg
[~2021-10-08 14:34] MED LIST changes: +FOLI1TAB27 PO; -FOLI1TAB94 PO
[2021-10-08] MEDS ORDERED: DEXAMETHASONE SOD PHOSPHATE 4 MG INJ IV ONE (15:15)
[2021-10-08] MEDS ORDERED: AZITHROMYCIN IV 500 MG in IV DEXTROSE 5% 250 ML IV ONE (15:15)
[2021-10-08] MEDS ORDERED: CEFTRIAXONE 1 G in IV DEXTROSE 5% 50 ML IV ONE (15:15)
[2021-10-08] MEDS ORDERED: IV NORMAL SALINE 1000 ML BAG IV ONE (15:15)
[2021-10-08 16:25] LABS: HEMATOCRIT 43.3 % (36.7-47.1); MEAN CORPUSCULAR HEMOGLOBIN 28.6 uug (23.8-33.4); MEAN CORPUSCULAR VOLUME 87.5 fL (73.0-96.2); PLATELET COUNT (AUTO) 228 K/uL (152-348)
[2021-10-08] MEDS ORDERED: DEXAMETHASONE SOD PHOSPHATE 10 MG INJ ONE (16:29)
[2021-10-08] MEDS ORDERED: AZITHROMYCIN 500MG/ D5W 250ML IVPB **ER PYXIS ONLY IV ONE (16:29)
[2021-10-08] MEDS ORDERED: CEFTRIAXONE /D5W 50ML IVPB **ER PYXIS IV ONE (16:30)
[2021-10-08 16:34] LABS: CREATININE 0.7 mg/dL (0.6-1.3); POTASSIUM 3.9 mmol/L (3.5-5.1)
[2021-10-08 16:47] LABS: BILIRUBIN,DIRECT 0.2 mg/dL (0.0-0.2); BILIRUBIN,TOTAL 0.7 mg/dL (0.2-1.0); TOTAL PROTEIN, SERUM 6.9 g/dL (6.4-8.2)
[2021-10-08 16:49] LABS: *BILIRUBIN,URIN NEGATIVE (NEGATIVE); *CLARITY,URINE CLEAR (CLEAR); *COLOR,URINE YELLOW (YELLOW); *KETONES,URINE NEGATIVE (NEGATIVE); *UROBILINOGEN,URINE 0.2 E.U./dl (NORMAL); LEUKOCYTE ESTERASE ,URINE NEGATIVE (NEGATIVE); NITRITE, URINE NEGATIVE (NEGATIVE); PH,URINE 6.5 (5.0-8.0); UGLUCOSE NEGATIVE (NEGATIVE)
[2021-10-08 16:57] LABS: *BLOOD, URINE TRACE (NEGATIVE)
[2021-10-08] MEDS ORDERED: CEFEPIME HCL 1 G in IV DEXTROSE 5% 50 ML IV ONE (17:15)
[2021-10-08] MEDS ORDERED: CEFEPIME HCL 1 G VIAL ONE (17:45)
[2021-10-08] MEDS ORDERED: Z GUARD REMEDY PASTE 57 GM TUBE TOP PRN (20:45)
[2021-10-08] MEDS ORDERED: ONDANSETRON 4 MG/2 ML VIAL IV PRN (20:45)
[2021-10-08] MEDS ORDERED: MAGNESIUM HYDROXIDE 30 ML LIQUID UDC PO PRN (20:45)
[2021-10-08] MEDS ORDERED: ACETAMINOPHEN 325 MG TABLET PO PRN (20:45)
[2021-10-08 20:49] LABS: BACTERIA,URINE NONE SEEN /HPF (NONE SEEN); SQUAMOUS EPITHELIAL CELL,UR NONE SEEN /HPF (NONE SEEN); WBC,URINE NONE SEEN /HPF (0-3)
[2021-10-08] MEDS ORDERED: Z GUARD REMEDY PASTE 57 GM TUBE TOP SCH (21:00)
[2021-10-08] MEDS: ENOXAPARIN SODIUM 40 MG/0.4 ML DISP.SYRIN SQ SCH (21:08)
[2021-10-08] MEDS ORDERED: ENOXAPARIN SODIUM 40 MG/0.4 ML DISP.SYRIN SQ ONE (21:13)
[2021-10-08] MEDS: DOXYCYCLINE HYCLATE IV 100 MG in IV DEXTROSE 5% 100 ML IV SCH (21:15)
[2021-10-08] MEDS: ATORVASTATIN 20 MG TABLET PO SCH (21:15)
[2021-10-09 06:03] LABS: HEMATOCRIT 41.1 % (36.7-47.1); MEAN CORPUSCULAR HEMOGLOBIN 28.8 uug (23.8-33.4); PLATELET COUNT (AUTO) 215 K/uL (152-348)
[2021-10-09 06:14] LABS: BILIRUBIN,DIRECT 0.2 mg/dL (0.0-0.2); BILIRUBIN,TOTAL 0.7 mg/dL (0.2-1.0); CREATININE 0.6 mg/dL (0.6-1.3); PHOSPHOROUS 3.3 mg/dL (2.5-4.9); POTASSIUM 4.2 mmol/L (3.5-5.1); TOTAL PROTEIN, SERUM 6.6 g/dL (6.4-8.2)
[2021-10-09] MEDS: LEVOTHYROXINE SODIUM 112 MCG TABLET PO SCH (06:38)
[2021-10-09] MEDS: PANTOPRAZOLE SODIUM 40 MG TABLET.DR PO SCH (06:38)
[2021-10-09] MEDS ORDERED: LEVOTHYROXINE SODIUM 112 MCG TABLET ONE (06:43)
[2021-10-09] MEDS ORDERED: PANTOPRAZOLE SODIUM 40 MG TABLET.DR PO ONE (06:43)
[2021-10-09 09:40] VITALS: BP 146/66
[2021-10-09] MEDS: ASPIRIN 81 MG TAB.CHEW PO SCH (11:40)
[2021-10-09] MEDS: DOXYCYCLINE HYCLATE IV 100 MG in IV DEXTROSE 5% 100 ML IV SCH ×2 (11:40→20:58)
[2021-10-09] MEDS: FOLIC ACID 1 MG TABLET PO SCH (11:40)
[2021-10-09] MEDS: FUROSEMIDE 40 MG TABLET PO SCH (11:41)
[2021-10-09] MEDS: GABAPENTIN 100 MG CAPSULE PO SCH ×3 (11:41→16:40)
[2021-10-09] MEDS: METOPROLOL SUCCINATE XL 25 MG TAB.SR.24H PO SCH (11:42)
[2021-10-09] MEDS ORDERED: CALC0.253 PO (12:27)
[2021-10-09 12:40] VITALS: BP 103/68
[2021-10-09] MEDS ORDERED: POTA8TAB3 PO (12:41)
[2021-10-09] MEDS: CEFTRIAXONE 1 G in IV DEXTROSE 5% 50 ML IV SCH (15:27)
[2021-10-09 17:56] VITALS: BP 122/62
[2021-10-09] MEDS: DEXAMETHASONE 4 MG TABLET PO SCH (18:46)
[2021-10-09] MEDS: ATORVASTATIN 20 MG TABLET PO SCH (20:58)
[2021-10-09 21:31] VITALS: BP 111/53
[2021-10-09] MEDS: ENOXAPARIN SODIUM 40 MG/0.4 ML DISP.SYRIN SQ SCH (21:59)
[2021-10-10 00:09] VITALS: BP 108/51
[2021-10-10 04:25] VITALS: BP 127/71
[2021-10-10] MEDS: PANTOPRAZOLE SODIUM 40 MG TABLET.DR PO SCH (06:36)
[2021-10-10] MEDS: LEVOTHYROXINE SODIUM 112 MCG TABLET PO SCH (06:36)
[2021-10-10 06:41] LABS: HEMATOCRIT 41.2 % (36.7-47.1); MEAN CORPUSCULAR HEMOGLOBIN 28.6 uug (23.8-33.4); MEAN CORPUSCULAR VOLUME 87.4 fL (73.0-96.2); PLATELET COUNT (AUTO) 235 K/uL (152-348)
[2021-10-10 07:10] LABS: BILIRUBIN,TOTAL 0.7 mg/dL (0.2-1.0); CREATININE 0.7 mg/dL (0.6-1.3); MAGNESIUM 1.9 mg/dL (1.8-2.4); PHOSPHOROUS 3.3 mg/dL (2.5-4.9); TOTAL PROTEIN, SERUM 6.5 g/dL (6.4-8.2)
[2021-10-10] MEDS: FOLIC ACID 1 MG TABLET PO SCH (08:43)
[2021-10-10] MEDS: ASPIRIN 81 MG TAB.CHEW PO SCH (08:43)
[2021-10-10] MEDS: DEXAMETHASONE 4 MG TABLET PO SCH (08:44)
[2021-10-10] MEDS: GABAPENTIN 100 MG CAPSULE PO SCH ×3 (08:44→17:41)
[2021-10-10] MEDS: METOPROLOL SUCCINATE XL 25 MG TAB.SR.24H PO SCH (08:46)
[2021-10-10] MEDS: FUROSEMIDE 40 MG TABLET PO SCH (08:49)
[2021-10-10] MEDS: DOXYCYCLINE HYCLATE IV 100 MG in IV DEXTROSE 5% 100 ML IV SCH ×2 (08:59→21:58)
[2021-10-10] MEDS: CALCITRIOL 0.25 MCG CAPSULE PO SCH (08:59)
[2021-10-10 12:00] VITALS: BP 109/56
[2021-10-10] MEDS: CEFTRIAXONE 1 G in IV DEXTROSE 5% 50 ML IV SCH (15:51)
[2021-10-10 16:00] VITALS: BP 108/58
[2021-10-10 20:00] VITALS: BP 125/62
[2021-10-10] MEDS: ATORVASTATIN 20 MG TABLET PO SCH (21:57)
[2021-10-10] MEDS: ENOXAPARIN SODIUM 40 MG/0.4 ML DISP.SYRIN SQ SCH (21:59)
[2021-10-11] VITALS: BP 110/62
[2021-10-11 04:24] VITALS: BP 138/65
[2021-10-11] MEDS: LEVOTHYROXINE SODIUM 112 MCG TABLET PO SCH (06:11)
[2021-10-11] MEDS: PANTOPRAZOLE SODIUM 40 MG TABLET.DR PO SCH (06:11)
[2021-10-11] MEDS: FUROSEMIDE 40 MG TABLET PO SCH (09:00)
[2021-10-11] MEDS: METOPROLOL SUCCINATE XL 25 MG TAB.SR.24H PO SCH (09:00)
[2021-10-11] MEDS: ASPIRIN 81 MG TAB.CHEW PO SCH (09:09)
[2021-10-11] MEDS: GABAPENTIN 100 MG CAPSULE PO SCH ×3 (09:19→16:07)
[2021-10-11] MEDS: DEXAMETHASONE 4 MG TABLET PO SCH (09:19)
[2021-10-11] MEDS: FOLIC ACID 1 MG TABLET PO SCH (09:20)
[2021-10-11] MEDS: CALCITRIOL 0.25 MCG CAPSULE PO SCH (09:20)
[2021-10-11 12:00] VITALS: BP_SYST 106; BP_SYST 109; BP_DIAS 57
[2021-10-11] MEDS: DOXYCYCLINE HYCLATE IV 100 MG in IV DEXTROSE 5% 100 ML IV SCH (12:22)
[2021-10-11 16:00] VITALS: BP 125/57
[2021-10-11 20:18] VITALS: BP 121/57
[2021-10-11] MEDS: ATORVASTATIN 20 MG TABLET PO SCH (20:59)
[2021-10-11] MEDS: ENOXAPARIN SODIUM 40 MG/0.4 ML DISP.SYRIN SQ SCH (21:07)
[2021-10-12 00:09] VITALS: BP 129/65
[2021-10-12 04:12] VITALS: BP 119/59
[2021-10-12] MEDS: LEVOTHYROXINE SODIUM 112 MCG TABLET PO SCH (06:14)
[2021-10-12] MEDS: PANTOPRAZOLE SODIUM 40 MG TABLET.DR PO SCH (06:14)
[2021-10-12 07:40] LABS: HEMATOCRIT 37.5 % (36.7-47.1); MEAN CORPUSCULAR HEMOGLOBIN 28.5 uug (23.8-33.4); MEAN CORPUSCULAR VOLUME 87.5 fL (73.0-96.2); PLATELET COUNT (AUTO) 195 K/uL (152-348)
[2021-10-12 08:02] LABS: CREATININE 0.6 mg/dL (0.6-1.3); MAGNESIUM 1.9 mg/dL (1.8-2.4); PHOSPHOROUS 2.4 mg/dL (2.5-4.9); POTASSIUM 3.7 mmol/L (3.5-5.1)
[2021-10-12] MEDS: FUROSEMIDE 40 MG TABLET PO SCH (09:28)
[2021-10-12] MEDS: FOLIC ACID 1 MG TABLET PO SCH (09:28)
[2021-10-12] MEDS: ASPIRIN 81 MG TAB.CHEW PO SCH (09:28)
[2021-10-12] MEDS: DEXAMETHASONE 4 MG TABLET PO SCH (09:28)
[2021-10-12] MEDS: GABAPENTIN 100 MG CAPSULE PO SCH ×3 (09:28→16:45)
[2021-10-12] MEDS: METOPROLOL SUCCINATE XL 25 MG TAB.SR.24H PO SCH (09:29)
[2021-10-12] MEDS: CALCITRIOL 0.25 MCG CAPSULE PO SCH (10:19)
[2021-10-12 12:00] VITALS: BP 97/50
[2021-10-12] MEDS ORDERED: NEUTRA PHOS PACKET PO ONE (15:30)
[2021-10-12 16:00] VITALS: BP 109/54
[2021-10-12] MEDS: ATORVASTATIN 20 MG TABLET PO SCH (20:25)
[2021-10-12] MEDS: ENOXAPARIN SODIUM 40 MG/0.4 ML DISP.SYRIN SQ SCH (20:27)
[2021-10-12] MEDS ORDERED: DEXA4TAB2 PO (21:52)
[2021-10-13] MEDS: LEVOTHYROXINE SODIUM 112 MCG TABLET PO SCH (06:01)
[2021-10-13] MEDS: PANTOPRAZOLE SODIUM 40 MG TABLET.DR PO SCH (06:01)
[2021-10-13 07:05] LABS: CREATININE 0.7 mg/dL (0.6-1.3); PHOSPHOROUS 3.1 mg/dL (2.5-4.9); POTASSIUM 3.7 mmol/L (3.5-5.1)
[2021-10-13] MEDS: DEXAMETHASONE 4 MG TABLET PO SCH (08:10)
[2021-10-13] MEDS: ASPIRIN 81 MG TAB.CHEW PO SCH (08:10)
[2021-10-13] MEDS: FOLIC ACID 1 MG TABLET PO SCH (08:11)
[2021-10-13] MEDS: GABAPENTIN 100 MG CAPSULE PO SCH ×2 (08:11→12:09)
[2021-10-13] MEDS: FUROSEMIDE 40 MG TABLET PO SCH (08:11)
[2021-10-13 08:12] VITALS: BP 140/60
[2021-10-13] MEDS: METOPROLOL SUCCINATE XL 25 MG TAB.SR.24H PO SCH (08:12)
[2021-10-13] MEDS ORDERED: ENSURE WITH FIBER 237 ML LIQUID (CHOCOLATE) PO SCH (09:00)
[2021-10-13] MEDS: CALCITRIOL 0.25 MCG CAPSULE PO SCH (09:31)
== END 2021-10-13 14:16 | disposition home health service (06) | DRG 177 ==
LOC: ER 14:34 → TRANSITION 18:01 → TELE3 10-09 08:38
PROVIDERS: ADMIT Nurse Practitioner Family; ATTEND Internal Medicine
PROC: 05HC33Z Insertion of Infusion Device into Left Basilic Vein, Percutaneous Approach (ICD-10-PCS; principal; 2021-10-11)
DX: U07.1 COVID-19 (principal); J12.82 Pneumonia due to coronavirus disease 2019; J96.01 Acute respiratory failure with hypoxia; G92.8 Other toxic encephalopathy; E43 Unspecified severe protein-calorie malnutrition; I50.33 Acute on chronic diastolic (congestive) heart failure; D68.59 Other primary thrombophilia; G82.20 Paraplegia, unspecified; I11.0 Hypertensive heart disease with heart failure; R74.01 Elevation of levels of liver transaminase levels; E11.42 Type 2 diabetes mellitus with diabetic polyneuropathy; I87.2 Venous insufficiency (chronic) (peripheral); E78.5 Hyperlipidemia, unspecified; S14.154S Other incomplete lesion at C4 level of cervical spinal cord, sequela; Z95.0 Presence of cardiac pacemaker; I51.7 Cardiomegaly; W19.XXXS Unspecified fall, sequela; E03.9 Hypothyroidism, unspecified; E66.8 Other obesity; Z68.30 Body mass index [BMI] 30.0-30.9, adult; Z74.09 Other reduced mobility; Z86.79 Personal history of other diseases of the circulatory system; Z86.16 Personal history of COVID-19
CPT/HCPCS: 36415; 51702; 70030-TC; 71045; 83605; 83615; 83735; 84100; 85025; 86140; 87040; 87086; 93005; 97161; A4663; A6209; G0378; J0456; J0692; J0696; J1100; J1650; J3490; J7030; J7040; J7060; J8540

== ENCOUNTER 2021-10-13 14:24 | Inpatient (IN) | payer MEDICARE, OTHER ==
[~2021-10-13] VITALS: Ht 172.7 cm; Wt 90.7 kg
[~2021-10-13 14:24] MED LIST changes: +CALC0.253 PO; +DEXA4TAB2 PO; -POTA10CA43 PO; +POTA8TAB3 PO
[2021-10-13 16:41] VITALS: BP 90/54
[2021-10-13] MEDS: MIRALAX 17 GM POWD.PACK PO SCH (18:31)
[2021-10-13 20:00] VITALS: BP 130/64
[2021-10-13] MEDS: Z GUARD REMEDY PASTE 57 GM TUBE TOP SCH (20:55)
[2021-10-14 04:00] VITALS: BP 116/60
[2021-10-14 07:20] LABS: HEMATOCRIT 38.4 % (36.7-47.1); MEAN CORPUSCULAR HEMOGLOBIN 28.8 uug (23.8-33.4); MEAN CORPUSCULAR VOLUME 86.9 fL (73.0-96.2); PLATELET COUNT (AUTO) 175 K/uL (152-348)
[2021-10-14 07:35] LABS: CREATININE 0.7 mg/dL (0.6-1.3); MAGNESIUM 1.7 mg/dL (1.8-2.4); PHOSPHOROUS 3.6 mg/dL (2.5-4.9); POTASSIUM 3.7 mmol/L (3.5-5.1)
[2021-10-14 07:36] VITALS: BP 122/60
[2021-10-14] MEDS: MIRALAX 17 GM POWD.PACK PO SCH (08:35)
[2021-10-14] MEDS: Z GUARD REMEDY PASTE 57 GM TUBE TOP SCH ×2 (08:36→20:12)
[2021-10-14] MEDS ORDERED: MAGNESIUM OXIDE 400 MG TABLET PO ONE (09:15)
[2021-10-14] MEDS: CLOTRIMAZOLE 1% CREAM 30 GM TUBE TOP SCH (16:53)
[2021-10-14 17:14] VITALS: BP 101/55
[2021-10-14 20:00] VITALS: BP 122/51
[2021-10-15 04:00] VITALS: BP 119/64
[2021-10-15 07:40] VITALS: BP 141/66
[2021-10-15] MEDS: MIRALAX 17 GM POWD.PACK PO SCH (09:23)
[2021-10-15] MEDS: CLOTRIMAZOLE 1% CREAM 30 GM TUBE TOP SCH ×2 (09:23→17:26)
[2021-10-15] MEDS: Z GUARD REMEDY PASTE 57 GM TUBE TOP SCH ×2 (09:24→20:24)
[2021-10-15 15:26] VITALS: BP 116/59
[2021-10-15] MEDS ORDERED: MAGNESIUM OXIDE 400 MG TABLET PO ONE (18:30)
[2021-10-15] MEDS: MUPIROCIN 2% OINT 22 GM TUBE NS SCH (20:20)
[2021-10-15] MEDS: ATORVASTATIN 20 MG TABLET PO SCH (20:21)
[2021-10-15] MEDS: ENOXAPARIN SODIUM 40 MG/0.4 ML DISP.SYRIN SQ SCH (20:24)
[2021-10-15 20:40] VITALS: BP 130/61
[2021-10-16 04:54] VITALS: BP 117/50
[2021-10-16] MEDS: LEVOTHYROXINE SODIUM 112 MCG TABLET PO SCH (06:12)
[2021-10-16 07:48] VITALS: BP 133/57
[2021-10-16 08:09] LABS: HEMATOCRIT 37.3 % (36.7-47.1); MEAN CORPUSCULAR HEMOGLOBIN 28.9 uug (23.8-33.4); MEAN CORPUSCULAR VOLUME 87.7 fL (73.0-96.2); PLATELET COUNT (AUTO) 142 K/uL (152-348)
[2021-10-16 08:27] LABS: CREATININE 0.6 mg/dL (0.6-1.3); MAGNESIUM 2.4 mg/dL (1.8-2.4); PHOSPHOROUS 2.7 mg/dL (2.5-4.9); POTASSIUM 3.9 mmol/L (3.5-5.1)
[2021-10-16] MEDS ORDERED: GABAPENTIN 300 MG CAPSULE PO SCH (09:00)
[2021-10-16] MEDS: FUROSEMIDE 40 MG TABLET PO SCH (09:25)
[2021-10-16] MEDS: MUPIROCIN 2% OINT 22 GM TUBE NS SCH ×2 (09:25→22:03)
[2021-10-16] MEDS: CALCITRIOL 0.25 MCG CAPSULE PO SCH (09:25)
[2021-10-16] MEDS: FOLIC ACID 1 MG TABLET PO SCH (09:26)
[2021-10-16] MEDS: GABAPENTIN 100 MG CAPSULE PO SCH ×3 (09:26→16:51)
[2021-10-16] MEDS: ASPIRIN 81 MG TAB.CHEW PO SCH (09:28)
[2021-10-16] MEDS: METOPROLOL SUCCINATE XL 25 MG TAB.SR.24H PO SCH (09:28)
[2021-10-16] MEDS: MIRALAX 17 GM POWD.PACK PO SCH (09:30)
[2021-10-16] MEDS: ENSURE WITH FIBER 237 ML LIQUID (CHOCOLATE) PO SCH (09:31)
[2021-10-16] MEDS: Z GUARD REMEDY PASTE 57 GM TUBE TOP SCH ×2 (11:36→22:04)
[2021-10-16] MEDS: CLOTRIMAZOLE 1% CREAM 30 GM TUBE TOP SCH ×2 (11:36→16:51)
[2021-10-16 15:10] VITALS: BP 100/57
[2021-10-16] MEDS: ATORVASTATIN 20 MG TABLET PO SCH (21:55)
[2021-10-16] MEDS: ENOXAPARIN SODIUM 40 MG/0.4 ML DISP.SYRIN SQ SCH (21:59)
[2021-10-16 22:02] VITALS: BP 117/58
[2021-10-17 05:38] VITALS: BP 113/50
[2021-10-17] MEDS: LEVOTHYROXINE SODIUM 112 MCG TABLET PO SCH (06:19)
[2021-10-17 07:46] VITALS: BP 150/69
[2021-10-17 08:10] LABS: MEAN CORPUSCULAR HEMOGLOBIN 28.8 uug (23.8-33.4); MEAN CORPUSCULAR VOLUME 88.3 fL (73.0-96.2); PLATELET COUNT (AUTO) 129 K/uL (152-348)
[2021-10-17 08:37] LABS: CREATININE 0.6 mg/dL (0.6-1.3); MAGNESIUM 2.3 mg/dL (1.8-2.4); PHOSPHOROUS 2.9 mg/dL (2.5-4.9); POTASSIUM 3.8 mmol/L (3.5-5.1)
[2021-10-17] MEDS: MIRALAX 17 GM POWD.PACK PO SCH (10:10)
[2021-10-17] MEDS: ASPIRIN 81 MG TAB.CHEW PO SCH (10:10)
[2021-10-17] MEDS: CALCITRIOL 0.25 MCG CAPSULE PO SCH (10:10)
[2021-10-17] MEDS: GABAPENTIN 100 MG CAPSULE PO SCH ×3 (10:11→16:56)
[2021-10-17] MEDS: FOLIC ACID 1 MG TABLET PO SCH (10:11)
[2021-10-17] MEDS: METOPROLOL SUCCINATE XL 25 MG TAB.SR.24H PO SCH (10:11)
[2021-10-17] MEDS: FUROSEMIDE 40 MG TABLET PO SCH (10:12)
[2021-10-17] MEDS: CLOTRIMAZOLE 1% CREAM 30 GM TUBE TOP SCH ×2 (10:13→17:04)
[2021-10-17] MEDS: ENSURE WITH FIBER 237 ML LIQUID (CHOCOLATE) PO SCH (10:13)
[2021-10-17] MEDS: Z GUARD REMEDY PASTE 57 GM TUBE TOP SCH ×2 (10:14→20:07)
[2021-10-17] MEDS: MUPIROCIN 2% OINT 22 GM TUBE NS SCH ×2 (10:14→20:08)
[2021-10-17 15:12] VITALS: BP 129/62
[2021-10-17] MEDS: ENOXAPARIN SODIUM 40 MG/0.4 ML DISP.SYRIN SQ SCH (20:07)
[2021-10-17] MEDS: ATORVASTATIN 20 MG TABLET PO SCH (20:07)
[2021-10-17 21:40] VITALS: BP 117/54
[2021-10-18 04:15] VITALS: BP 108/55
[2021-10-18] MEDS: LEVOTHYROXINE SODIUM 112 MCG TABLET PO SCH (06:12)
[2021-10-18 07:14] LABS: HEMATOCRIT 38.4 % (36.7-47.1); MEAN CORPUSCULAR HEMOGLOBIN 28.8 uug (23.8-33.4); MEAN CORPUSCULAR VOLUME 88.2 fL (73.0-96.2); PLATELET COUNT (AUTO) 111 K/uL (152-348)
[2021-10-18 07:36] LABS: CREATININE 0.7 mg/dL (0.6-1.3); MAGNESIUM 2.1 mg/dL (1.8-2.4); PHOSPHOROUS 2.9 mg/dL (2.5-4.9); POTASSIUM 3.8 mmol/L (3.5-5.1)
[2021-10-18] MEDS: FUROSEMIDE 40 MG TABLET PO SCH (08:03)
[2021-10-18] MEDS: GABAPENTIN 100 MG CAPSULE PO SCH ×3 (08:03→16:19)
[2021-10-18] MEDS: ASPIRIN 81 MG TAB.CHEW PO SCH (08:03)
[2021-10-18] MEDS: MUPIROCIN 2% OINT 22 GM TUBE NS SCH ×2 (08:03→20:34)
[2021-10-18] MEDS: FOLIC ACID 1 MG TABLET PO SCH (08:04)
[2021-10-18] MEDS: CALCITRIOL 0.25 MCG CAPSULE PO SCH (08:04)
[2021-10-18] MEDS: MIRALAX 17 GM POWD.PACK PO SCH (08:04)
[2021-10-18] MEDS: METOPROLOL SUCCINATE XL 25 MG TAB.SR.24H PO SCH (08:05)
[2021-10-18] MEDS: Z GUARD REMEDY PASTE 57 GM TUBE TOP SCH ×2 (08:09→20:34)
[2021-10-18] MEDS: ENSURE WITH FIBER 237 ML LIQUID (CHOCOLATE) PO SCH (08:09)
[2021-10-18] MEDS: CLOTRIMAZOLE 1% CREAM 30 GM TUBE TOP SCH ×2 (08:09→16:20)
[2021-10-18 16:35] VITALS: BP 115/61
[2021-10-18 20:00] VITALS: BP 124/66
[2021-10-18] MEDS: ATORVASTATIN 20 MG TABLET PO SCH (20:33)
[2021-10-18] MEDS: ENOXAPARIN SODIUM 40 MG/0.4 ML DISP.SYRIN SQ SCH (20:34)
[2021-10-19 04:00] VITALS: BP 113/54
[2021-10-19] MEDS: LEVOTHYROXINE SODIUM 112 MCG TABLET PO SCH (06:16)
[2021-10-19 06:36] LABS: MEAN CORPUSCULAR HEMOGLOBIN 28.6 uug (23.8-33.4); PLATELET COUNT (AUTO) 101 K/uL (152-348)
[2021-10-19 07:01] LABS: CREATININE 0.7 mg/dL (0.6-1.3); POTASSIUM 3.7 mmol/L (3.5-5.1)
[2021-10-19] MEDS: ASPIRIN 81 MG TAB.CHEW PO SCH (08:38)
[2021-10-19] MEDS: GABAPENTIN 100 MG CAPSULE PO SCH ×3 (08:38→17:06)
[2021-10-19] MEDS: MIRALAX 17 GM POWD.PACK PO SCH (08:39)
[2021-10-19] MEDS: FOLIC ACID 1 MG TABLET PO SCH (08:39)
[2021-10-19] MEDS: FUROSEMIDE 40 MG TABLET PO SCH (08:39)
[2021-10-19] MEDS: MUPIROCIN 2% OINT 22 GM TUBE NS SCH ×2 (08:40→21:00)
[2021-10-19] MEDS: ENSURE WITH FIBER 237 ML LIQUID (CHOCOLATE) PO SCH (08:41)
[2021-10-19] MEDS: CALCITRIOL 0.25 MCG CAPSULE PO SCH (08:41)
[2021-10-19] MEDS: METOPROLOL SUCCINATE XL 25 MG TAB.SR.24H PO SCH (08:42)
[2021-10-19] MEDS: CLOTRIMAZOLE 1% CREAM 30 GM TUBE TOP SCH ×2 (08:43→17:10)
[2021-10-19] MEDS: Z GUARD REMEDY PASTE 57 GM TUBE TOP SCH ×2 (08:43→20:59)
[2021-10-19 12:00] VITALS: BP 115/70
[2021-10-19 20:00] VITALS: BP 123/53
[2021-10-19] MEDS: ATORVASTATIN 20 MG TABLET PO SCH (20:59)
[2021-10-19] MEDS: ENOXAPARIN SODIUM 40 MG/0.4 ML DISP.SYRIN SQ SCH (21:02)
[2021-10-20 04:00] VITALS: BP 108/69
[2021-10-20] MEDS: LEVOTHYROXINE SODIUM 112 MCG TABLET PO SCH (06:16)
[2021-10-20 06:46] LABS: HEMATOCRIT 36.1 % (36.7-47.1); MEAN CORPUSCULAR HEMOGLOBIN 28.8 uug (23.8-33.4); MEAN CORPUSCULAR VOLUME 87.4 fL (73.0-96.2); PLATELET COUNT (AUTO) 95 K/uL (152-348)
[2021-10-20 07:08] LABS: CREATININE 0.7 mg/dL (0.6-1.3); PHOSPHOROUS 3.4 mg/dL (2.5-4.9); POTASSIUM 3.5 mmol/L (3.5-5.1)
[2021-10-20] MEDS: ASPIRIN 81 MG TAB.CHEW PO SCH (09:02)
[2021-10-20] MEDS: MUPIROCIN 2% OINT 22 GM TUBE NS SCH ×2 (09:02→22:36)
[2021-10-20] MEDS: FUROSEMIDE 40 MG TABLET PO SCH (09:03)
[2021-10-20] MEDS: GABAPENTIN 100 MG CAPSULE PO SCH ×3 (09:03→16:40)
[2021-10-20] MEDS: FOLIC ACID 1 MG TABLET PO SCH (09:03)
[2021-10-20] MEDS: ENSURE WITH FIBER 237 ML LIQUID (CHOCOLATE) PO SCH (09:03)
[2021-10-20] MEDS: METOPROLOL SUCCINATE XL 25 MG TAB.SR.24H PO SCH (09:04)
[2021-10-20] MEDS: CALCITRIOL 0.25 MCG CAPSULE PO SCH (09:04)
[2021-10-20] MEDS: MIRALAX 17 GM POWD.PACK PO SCH (09:05)
[2021-10-20] MEDS: Z GUARD REMEDY PASTE 57 GM TUBE TOP SCH ×2 (09:05→22:41)
[2021-10-20] MEDS: CLOTRIMAZOLE 1% CREAM 30 GM TUBE TOP SCH ×2 (09:05→16:40)
[2021-10-20 09:13] VITALS: BP 122/60
[2021-10-20 09:42] LABS: BILIRUBIN,DIRECT 0.2 mg/dL (0.0-0.2); BILIRUBIN,TOTAL 0.7 mg/dL (0.2-1.0); TOTAL PROTEIN, SERUM 6.3 g/dL (6.4-8.2)
[2021-10-20 13:41] VITALS: BP 112/52
[2021-10-20 16:00] VITALS: BP 122/65
[2021-10-20 21:19] VITALS: BP 124/67
[2021-10-20] MEDS: ATORVASTATIN 20 MG TABLET PO SCH (22:36)
[2021-10-20] MEDS: ENOXAPARIN SODIUM 40 MG/0.4 ML DISP.SYRIN SQ SCH (22:38)
[2021-10-21] MEDS: LEVOTHYROXINE SODIUM 112 MCG TABLET PO SCH (06:20)
[2021-10-21 07:31] VITALS: BP 115/62
[2021-10-21] MEDS: MUPIROCIN 2% OINT 22 GM TUBE NS SCH ×2 (09:08→22:03)
[2021-10-21] MEDS: FOLIC ACID 1 MG TABLET PO SCH (09:09)
[2021-10-21] MEDS: ASPIRIN 81 MG TAB.CHEW PO SCH (09:09)
[2021-10-21] MEDS: FUROSEMIDE 40 MG TABLET PO SCH (09:09)
[2021-10-21] MEDS: CALCITRIOL 0.25 MCG CAPSULE PO SCH (09:10)
[2021-10-21] MEDS: MIRALAX 17 GM POWD.PACK PO SCH (09:10)
[2021-10-21] MEDS: CLOTRIMAZOLE 1% CREAM 30 GM TUBE TOP SCH ×2 (09:11→17:47)
[2021-10-21] MEDS: Z GUARD REMEDY PASTE 57 GM TUBE TOP SCH ×2 (09:11→22:06)
[2021-10-21] MEDS: ENSURE WITH FIBER 237 ML LIQUID (CHOCOLATE) PO SCH (09:19)
[2021-10-21] MEDS: METOPROLOL SUCCINATE XL 25 MG TAB.SR.24H PO SCH (09:19)
[2021-10-21] MEDS: GABAPENTIN 100 MG CAPSULE PO SCH ×3 (09:19→17:28)
[2021-10-21 15:00] VITALS: BP 117/67
[2021-10-21] MEDS: ATORVASTATIN 20 MG TABLET PO SCH (22:03)
[2021-10-21] MEDS: ENOXAPARIN SODIUM 40 MG/0.4 ML DISP.SYRIN SQ SCH (22:05)
[2021-10-22] MEDS: LEVOTHYROXINE SODIUM 112 MCG TABLET PO SCH (06:30)
[2021-10-22 08:05] VITALS: BP 104/52
[2021-10-22] MEDS: FUROSEMIDE 40 MG TABLET PO SCH (08:58)
[2021-10-22] MEDS: ASPIRIN 81 MG TAB.CHEW PO SCH (08:58)
[2021-10-22] MEDS: FOLIC ACID 1 MG TABLET PO SCH (08:59)
[2021-10-22] MEDS: METOPROLOL SUCCINATE XL 25 MG TAB.SR.24H PO SCH (09:00)
[2021-10-22] MEDS: CALCITRIOL 0.25 MCG CAPSULE PO SCH (09:00)
[2021-10-22] MEDS: MIRALAX 17 GM POWD.PACK PO SCH (09:00)
[2021-10-22] MEDS: ENSURE WITH FIBER 237 ML LIQUID (CHOCOLATE) PO SCH ×2 (09:01→13:09)
[2021-10-22] MEDS: CLOTRIMAZOLE 1% CREAM 30 GM TUBE TOP SCH ×2 (09:02→16:44)
[2021-10-22] MEDS: MUPIROCIN 2% OINT 22 GM TUBE NS SCH (09:02)
[2021-10-22] MEDS: Z GUARD REMEDY PASTE 57 GM TUBE TOP SCH ×2 (09:02→21:00)
[2021-10-22] MEDS: GABAPENTIN 100 MG CAPSULE PO SCH ×3 (09:02→16:44)
[2021-10-22 16:08] VITALS: BP 100/43
[2021-10-22 20:00] VITALS: BP 118/50
[2021-10-22] MEDS: MIRTAZAPINE 15 MG TABLET PO SCH (20:53)
[2021-10-22] MEDS: ATORVASTATIN 20 MG TABLET PO SCH (20:53)
[2021-10-22] MEDS: ENOXAPARIN SODIUM 40 MG/0.4 ML DISP.SYRIN SQ SCH (20:59)
[2021-10-23 04:42] VITALS: BP 124/78
[2021-10-23] MEDS: LEVOTHYROXINE SODIUM 112 MCG TABLET PO SCH (06:28)
[2021-10-23 08:30] VITALS: BP 108/59
[2021-10-23] MEDS: METOPROLOL SUCCINATE XL 25 MG TAB.SR.24H PO SCH (09:00)
[2021-10-23] MEDS: FUROSEMIDE 40 MG TABLET PO SCH (09:00)
[2021-10-23] MEDS: MIRALAX 17 GM POWD.PACK PO SCH (10:07)
[2021-10-23] MEDS: FOLIC ACID 1 MG TABLET PO SCH (10:07)
[2021-10-23] MEDS: ASPIRIN 81 MG TAB.CHEW PO SCH (10:07)
[2021-10-23] MEDS: GABAPENTIN 100 MG CAPSULE PO SCH ×4 (10:07→17:18)
[2021-10-23] MEDS: PROTEIN SUPPLEMENT (PROSTAT) 30 ML LIQUID PO SCH (10:08)
[2021-10-23] MEDS: CALCITRIOL 0.25 MCG CAPSULE PO SCH (10:11)
[2021-10-23] MEDS: Z GUARD REMEDY PASTE 57 GM TUBE TOP SCH ×2 (10:14→20:55)
[2021-10-23] MEDS: CLOTRIMAZOLE 1% CREAM 30 GM TUBE TOP SCH ×2 (10:14→17:18)
[2021-10-23] MEDS: ENSURE WITH FIBER 237 ML LIQUID (CHOCOLATE) PO SCH ×2 (10:27→17:18)
[2021-10-23 15:13] VITALS: BP 119/69
[2021-10-23 20:33] VITALS: BP 119/56
[2021-10-23] MEDS: ATORVASTATIN 20 MG TABLET PO SCH (20:52)
[2021-10-23] MEDS: MIRTAZAPINE 15 MG TABLET PO SCH (20:52)
[2021-10-23] MEDS: ENOXAPARIN SODIUM 40 MG/0.4 ML DISP.SYRIN SQ SCH (20:55)
[2021-10-24 04:23] VITALS: BP 121/61
[2021-10-24] MEDS: LEVOTHYROXINE SODIUM 112 MCG TABLET PO SCH (06:09)
[2021-10-24 08:51] VITALS: BP 122/57
[2021-10-24] MEDS: FUROSEMIDE 40 MG TABLET PO SCH (08:57)
[2021-10-24] MEDS: ASPIRIN 81 MG TAB.CHEW PO SCH (08:57)
[2021-10-24] MEDS: FOLIC ACID 1 MG TABLET PO SCH (08:59)
[2021-10-24] MEDS: METOPROLOL SUCCINATE XL 25 MG TAB.SR.24H PO SCH (09:00)
[2021-10-24] MEDS: CALCITRIOL 0.25 MCG CAPSULE PO SCH (09:00)
[2021-10-24] MEDS: GABAPENTIN 100 MG CAPSULE PO SCH ×3 (09:00→17:36)
[2021-10-24] MEDS: MIRALAX 17 GM POWD.PACK PO SCH (09:00)
[2021-10-24] MEDS: PROTEIN SUPPLEMENT (PROSTAT) 30 ML LIQUID PO SCH (09:00)
[2021-10-24] MEDS: ENSURE WITH FIBER 237 ML LIQUID (CHOCOLATE) PO SCH ×2 (09:00→17:37)
[2021-10-24] MEDS: Z GUARD REMEDY PASTE 57 GM TUBE TOP SCH ×2 (09:05→20:31)
[2021-10-24] MEDS: CLOTRIMAZOLE 1% CREAM 30 GM TUBE TOP SCH ×2 (09:05→17:36)
[2021-10-24 15:41] LABS: *BILIRUBIN,URIN NEGATIVE (NEGATIVE); *BLOOD, URINE 3+ (NEGATIVE); *CLARITY,URINE CLEAR (CLEAR); *COLOR,URINE YELLOW (YELLOW); *KETONES,URINE NEGATIVE (NEGATIVE); LEUKOCYTE ESTERASE ,URINE NEGATIVE (NEGATIVE); NITRITE, URINE NEGATIVE (NEGATIVE); UGLUCOSE NEGATIVE (NEGATIVE)
[2021-10-24 15:54] VITALS: BP 109/55
[2021-10-24 18:42] LABS: BACTERIA,URINE NONE SEEN /HPF (NONE SEEN); RBC,URINE 20-50 /HPF (0-3); SQUAMOUS EPITHELIAL CELL,UR NONE SEEN /HPF (NONE SEEN); URINE AMORPHOUS PHOSPHATES MANY /HPF; WBC,URINE NONE SEEN /HPF (0-3)
[2021-10-24 20:03] VITALS: BP 133/65
[2021-10-24] MEDS: ATORVASTATIN 20 MG TABLET PO SCH (20:28)
[2021-10-24] MEDS: MIRTAZAPINE 15 MG TABLET PO SCH (20:28)
[2021-10-24] MEDS: ENOXAPARIN SODIUM 40 MG/0.4 ML DISP.SYRIN SQ SCH (20:30)
[2021-10-25 04:52] VITALS: BP 119/55
[2021-10-25] MEDS: LEVOTHYROXINE SODIUM 112 MCG TABLET PO SCH (06:14)
[2021-10-25 06:23] LABS: HEMATOCRIT 37.6 % (36.7-47.1); MEAN CORPUSCULAR HEMOGLOBIN 28.5 uug (23.8-33.4); MEAN CORPUSCULAR VOLUME 87.7 fL (73.0-96.2); PLATELET COUNT (AUTO) 116 K/uL (152-348)
[2021-10-25 08:00] VITALS: BP 122/58
[2021-10-25] MEDS: FUROSEMIDE 40 MG TABLET PO SCH (09:40)
[2021-10-25] MEDS: METOPROLOL SUCCINATE XL 25 MG TAB.SR.24H PO SCH (09:41)
[2021-10-25] MEDS: MIRALAX 17 GM POWD.PACK PO SCH (09:41)
[2021-10-25] MEDS: ASPIRIN 81 MG TAB.CHEW PO SCH (09:41)
[2021-10-25] MEDS: CALCITRIOL 0.25 MCG CAPSULE PO SCH (09:42)
[2021-10-25] MEDS: FOLIC ACID 1 MG TABLET PO SCH (09:42)
[2021-10-25] MEDS: PROTEIN SUPPLEMENT (PROSTAT) 30 ML LIQUID PO SCH (09:45)
[2021-10-25] MEDS: ENSURE WITH FIBER 237 ML LIQUID (CHOCOLATE) PO SCH ×2 (09:45→16:43)
[2021-10-25] MEDS: CLOTRIMAZOLE 1% CREAM 30 GM TUBE TOP SCH ×2 (09:46→16:44)
[2021-10-25] MEDS: Z GUARD REMEDY PASTE 57 GM TUBE TOP SCH ×2 (09:46→20:24)
[2021-10-25] MEDS: GABAPENTIN 100 MG CAPSULE PO SCH ×3 (09:47→16:43)
[2021-10-25 16:00] VITALS: BP 138/57
[2021-10-25 20:00] VITALS: BP_SYST 100; BP_SYST 101; BP_DIAS 55; BP_DIAS 56
[2021-10-25] MEDS: MIRTAZAPINE 15 MG TABLET PO SCH (20:21)
[2021-10-25] MEDS: ATORVASTATIN 20 MG TABLET PO SCH (20:21)
[2021-10-25] MEDS: ENOXAPARIN SODIUM 40 MG/0.4 ML DISP.SYRIN SQ SCH (20:23)
[2021-10-26 04:00] VITALS: BP 111/62
[2021-10-26] MEDS: LEVOTHYROXINE SODIUM 112 MCG TABLET PO SCH (06:03)
[2021-10-26 06:48] LABS: HEMATOCRIT 37.5 % (36.7-47.1); MEAN CORPUSCULAR HEMOGLOBIN 28.3 uug (23.8-33.4); MEAN CORPUSCULAR VOLUME 87.9 fL (73.0-96.2); PLATELET COUNT (AUTO) 128 K/uL (152-348)
[2021-10-26 07:25] LABS: CREATININE 0.7 mg/dL (0.6-1.3); MAGNESIUM 2.1 mg/dL (1.8-2.4); POTASSIUM 3.6 mmol/L (3.5-5.1)
[2021-10-26 08:21] VITALS: BP 121/64
[2021-10-26] MEDS: FOLIC ACID 1 MG TABLET PO SCH (09:17)
[2021-10-26] MEDS: FUROSEMIDE 40 MG TABLET PO SCH (09:17)
[2021-10-26] MEDS: MIRALAX 17 GM POWD.PACK PO SCH (09:17)
[2021-10-26] MEDS: ASPIRIN 81 MG TAB.CHEW PO SCH (09:17)
[2021-10-26] MEDS: CALCITRIOL 0.25 MCG CAPSULE PO SCH (09:17)
[2021-10-26] MEDS: GABAPENTIN 100 MG CAPSULE PO SCH ×3 (09:17→16:56)
[2021-10-26] MEDS: METOPROLOL SUCCINATE XL 25 MG TAB.SR.24H PO SCH (09:18)
[2021-10-26] MEDS: Z GUARD REMEDY PASTE 57 GM TUBE TOP SCH ×2 (09:19→20:51)
[2021-10-26] MEDS: CLOTRIMAZOLE 1% CREAM 30 GM TUBE TOP SCH ×2 (09:19→17:02)
[2021-10-26] MEDS: PROTEIN SUPPLEMENT (PROSTAT) 30 ML LIQUID PO SCH (09:22)
[2021-10-26] MEDS: ENSURE WITH FIBER 237 ML LIQUID (CHOCOLATE) PO SCH ×2 (09:22→16:56)
[2021-10-26 20:35] VITALS: BP 135/61
[2021-10-26] MEDS: ATORVASTATIN 20 MG TABLET PO SCH (20:50)
[2021-10-26] MEDS: MIRTAZAPINE 15 MG TABLET PO SCH (20:51)
[2021-10-26] MEDS: ENOXAPARIN SODIUM 40 MG/0.4 ML DISP.SYRIN SQ SCH (20:56)
[2021-10-27 04:45] VITALS: BP 119/59
[2021-10-27] MEDS: LEVOTHYROXINE SODIUM 112 MCG TABLET PO SCH (06:09)
[2021-10-27] MEDS: FOLIC ACID 1 MG TABLET PO SCH (09:08)
[2021-10-27 09:09] VITALS: BP 121/73
[2021-10-27] MEDS: FUROSEMIDE 40 MG TABLET PO SCH (09:11)
[2021-10-27] MEDS: MIRALAX 17 GM POWD.PACK PO SCH (09:11)
[2021-10-27] MEDS: GABAPENTIN 100 MG CAPSULE PO SCH ×3 (09:11→16:50)
[2021-10-27] MEDS: METOPROLOL SUCCINATE XL 25 MG TAB.SR.24H PO SCH (09:11)
[2021-10-27] MEDS: ASPIRIN 81 MG TAB.CHEW PO SCH (09:11)
[2021-10-27] MEDS: PROTEIN SUPPLEMENT (PROSTAT) 30 ML LIQUID PO SCH (09:12)
[2021-10-27] MEDS: CALCITRIOL 0.25 MCG CAPSULE PO SCH (09:15)
[2021-10-27] MEDS: CLOTRIMAZOLE 1% CREAM 30 GM TUBE TOP SCH ×2 (09:26→16:50)
[2021-10-27] MEDS: Z GUARD REMEDY PASTE 57 GM TUBE TOP SCH ×2 (09:26→20:25)
[2021-10-27] MEDS: ENSURE WITH FIBER 237 ML LIQUID (CHOCOLATE) PO SCH ×2 (09:26→16:50)
[2021-10-27 17:14] VITALS: BP 121/60
[2021-10-27] MEDS: ATORVASTATIN 20 MG TABLET PO SCH (20:19)
[2021-10-27] MEDS: MIRTAZAPINE 15 MG TABLET PO SCH (20:19)
[2021-10-27] MEDS: ENOXAPARIN SODIUM 40 MG/0.4 ML DISP.SYRIN SQ SCH (20:22)
[2021-10-27 20:40] VITALS: BP 107/55
[2021-10-28 04:25] VITALS: BP 111/56
[2021-10-28] MEDS: LEVOTHYROXINE SODIUM 112 MCG TABLET PO SCH (06:14)
[2021-10-28 06:51] LABS: HEMATOCRIT 36.6 % (36.7-47.1); MEAN CORPUSCULAR VOLUME 88.1 fL (73.0-96.2); PLATELET COUNT (AUTO) 139 K/uL (152-348)
[2021-10-28 07:16] LABS: CREATININE 0.7 mg/dL (0.6-1.3); MAGNESIUM 2.2 mg/dL (1.8-2.4); PHOSPHOROUS 3.2 mg/dL (2.5-4.9); POTASSIUM 3.4 mmol/L (3.5-5.1)
[2021-10-28 07:56] VITALS: BP 122/69
[2021-10-28] MEDS: FUROSEMIDE 40 MG TABLET PO SCH (08:28)
[2021-10-28] MEDS: ASPIRIN 81 MG TAB.CHEW PO SCH (08:28)
[2021-10-28] MEDS: FOLIC ACID 1 MG TABLET PO SCH (08:28)
[2021-10-28] MEDS: METOPROLOL SUCCINATE XL 25 MG TAB.SR.24H PO SCH (08:28)
[2021-10-28] MEDS: GABAPENTIN 100 MG CAPSULE PO SCH ×3 (08:28→17:13)
[2021-10-28] MEDS: MIRALAX 17 GM POWD.PACK PO SCH (08:29)
[2021-10-28] MEDS: ENSURE WITH FIBER 237 ML LIQUID (CHOCOLATE) PO SCH ×2 (08:29→17:14)
[2021-10-28] MEDS: CALCITRIOL 0.25 MCG CAPSULE PO SCH (08:29)
[2021-10-28] MEDS: Z GUARD REMEDY PASTE 57 GM TUBE TOP SCH ×2 (08:38→20:33)
[2021-10-28] MEDS: CLOTRIMAZOLE 1% CREAM 30 GM TUBE TOP SCH ×2 (08:38→17:14)
[2021-10-28] MEDS: PROTEIN SUPPLEMENT (PROSTAT) 30 ML LIQUID PO SCH (08:39)
[2021-10-28] MEDS ORDERED: POTASSIUM CHLORIDE 20 MEQ TAB.PRT.SR PO ONE (10:00)
[2021-10-28 16:00] VITALS: BP 123/55
[2021-10-28] MEDS: ATORVASTATIN 20 MG TABLET PO SCH (20:29)
[2021-10-28] MEDS: MIRTAZAPINE 15 MG TABLET PO SCH (20:30)
[2021-10-28 20:32] VITALS: BP 116/58
[2021-10-28] MEDS: ENOXAPARIN SODIUM 40 MG/0.4 ML DISP.SYRIN SQ SCH (20:35)
[2021-10-29 04:44] VITALS: BP 118/62
[2021-10-29] MEDS: LEVOTHYROXINE SODIUM 112 MCG TABLET PO SCH (06:07)
[2021-10-29 08:00] VITALS: BP 113/68
[2021-10-29] MEDS: MIRALAX 17 GM POWD.PACK PO SCH (08:22)
[2021-10-29] MEDS: FUROSEMIDE 40 MG TABLET PO SCH (08:22)
[2021-10-29] MEDS: ASPIRIN 81 MG TAB.CHEW PO SCH (08:22)
[2021-10-29] MEDS: GABAPENTIN 100 MG CAPSULE PO SCH ×3 (08:22→17:08)
[2021-10-29] MEDS: FOLIC ACID 1 MG TABLET PO SCH (08:22)
[2021-10-29] MEDS: Z GUARD REMEDY PASTE 57 GM TUBE TOP SCH ×2 (08:23→20:49)
[2021-10-29] MEDS: CLOTRIMAZOLE 1% CREAM 30 GM TUBE TOP SCH ×2 (08:23→17:09)
[2021-10-29] MEDS: ENSURE WITH FIBER 237 ML LIQUID (CHOCOLATE) PO SCH ×2 (08:23→17:42)
[2021-10-29] MEDS: CALCITRIOL 0.25 MCG CAPSULE PO SCH (08:23)
[2021-10-29] MEDS: PROTEIN SUPPLEMENT (PROSTAT) 30 ML LIQUID PO SCH (08:27)
[2021-10-29 15:44] VITALS: BP 124/64
[2021-10-29] MEDS: ATORVASTATIN 20 MG TABLET PO SCH (20:44)
[2021-10-29] MEDS: MIRTAZAPINE 15 MG TABLET PO SCH (20:44)
[2021-10-29] MEDS: ENOXAPARIN SODIUM 40 MG/0.4 ML DISP.SYRIN SQ SCH (20:46)
[2021-10-30 04:38] VITALS: BP 117/48
[2021-10-30] MEDS: LEVOTHYROXINE SODIUM 112 MCG TABLET PO SCH (06:02)
[2021-10-30 06:56] LABS: HEMATOCRIT 35.5 % (36.7-47.1); MEAN CORPUSCULAR HEMOGLOBIN 29.1 uug (23.8-33.4); MEAN CORPUSCULAR VOLUME 88.2 fL (73.0-96.2); PLATELET COUNT (AUTO) 170 K/uL (152-348)
[2021-10-30 07:14] LABS: CREATININE 0.8 mg/dL (0.6-1.3); PHOSPHOROUS 3.1 mg/dL (2.5-4.9); POTASSIUM 3.9 mmol/L (3.5-5.1)
[2021-10-30 08:04] VITALS: BP 142/73
[2021-10-30] MEDS: FUROSEMIDE 40 MG TABLET PO SCH (09:13)
[2021-10-30] MEDS: ASPIRIN 81 MG TAB.CHEW PO SCH (09:13)
[2021-10-30] MEDS: GABAPENTIN 100 MG CAPSULE PO SCH ×3 (09:13→16:46)
[2021-10-30] MEDS: FOLIC ACID 1 MG TABLET PO SCH (09:13)
[2021-10-30] MEDS: MIRALAX 17 GM POWD.PACK PO SCH (09:13)
[2021-10-30] MEDS: CALCITRIOL 0.25 MCG CAPSULE PO SCH (09:14)
[2021-10-30] MEDS: PROTEIN SUPPLEMENT (PROSTAT) 30 ML LIQUID PO SCH (09:14)
[2021-10-30] MEDS: Z GUARD REMEDY PASTE 57 GM TUBE TOP SCH (09:14)
[2021-10-30] MEDS: ENSURE WITH FIBER 237 ML LIQUID (CHOCOLATE) PO SCH ×2 (09:14→16:46)
[2021-10-30] MEDS: CLOTRIMAZOLE 1% CREAM 30 GM TUBE TOP SCH ×2 (09:14→16:46)
[2021-10-30 16:10] VITALS: BP 111/72
== END 2021-10-30 19:10 | DRG 177 ==
PROVIDERS: ADMIT Physical Medicine & Rehabilitation Pain Medicine; ATTEND Physical Medicine & Rehabilitation Pain Medicine
DX: U07.1 COVID-19 (principal); J12.82 Pneumonia due to coronavirus disease 2019; G92.8 Other toxic encephalopathy; E43 Unspecified severe protein-calorie malnutrition; J96.01 Acute respiratory failure with hypoxia; J69.0 Pneumonitis due to inhalation of food and vomit; I50.33 Acute on chronic diastolic (congestive) heart failure; D68.59 Other primary thrombophilia; I50.32 Chronic diastolic (congestive) heart failure; G82.22 Paraplegia, incomplete; L97.429 Non-pressure chronic ulcer of left heel and midfoot with unspecified severity; R53.1 Weakness; E03.9 Hypothyroidism, unspecified; S14.104S Unspecified injury at C4 level of cervical spinal cord, sequela; E11.9 Type 2 diabetes mellitus without complications; E66.9 Obesity, unspecified; E78.5 Hyperlipidemia, unspecified; I11.0 Hypertensive heart disease with heart failure; R26.9 Unspecified abnormalities of gait and mobility; R53.81 Other malaise; E11.42 Type 2 diabetes mellitus with diabetic polyneuropathy; E11.622 Type 2 diabetes mellitus with other skin ulcer; E11.621 Type 2 diabetes mellitus with foot ulcer; E88.09 Other disorders of plasma-protein metabolism, not elsewhere classified; F32.A Depression, unspecified; R31.29 Other microscopic hematuria; S06.5X9S Traumatic subdural hemorrhage with loss of consciousness of unspecified duration, sequela; Z78.1 Physical restraint status; S06.6X9S Traumatic subarachnoid hemorrhage with loss of consciousness of unspecified duration, sequela; W19.XXXS Unspecified fall, sequela; S30.0XXA Contusion of lower back and pelvis, initial encounter; S30.93XA Unspecified superficial injury of penis, initial encounter; X58.XXXA Exposure to other specified factors, initial encounter; Y93.9 Activity, unspecified; Y92.9 Unspecified place or not applicable; Z22.322 Carrier or suspected carrier of Methicillin resistant Staphylococcus aureus; Z68.30 Body mass index [BMI] 30.0-30.9, adult; Z87.891 Personal history of nicotine dependence; Z95.0 Presence of cardiac pacemaker; R00.1 Bradycardia, unspecified
CPT/HCPCS: 36415; 71045; 83735; 84100; 85025; 86140; 97161; 97535-GO-CO; A4217; A6209; J1650